=== PATIENT | male | born 1955 | race Caucasian/White ===

== ENCOUNTER 2019-05-29 12:16 | Inpatient (IN) ==
--- OUTSIDE RECORDS SUMMARY | 2019-05-29 12:18 | External Medical Summary | Continuity of Care Document ---
:1955 Author Name Fide Shaffer Address Unavailable Unavailable , Care Team Providers Name Role Phone Fide Shaffer Unavailable m PCP, UNKNOWN Unavailable Unavailable Problems Active medical history not documented Allergies and Adverse Reactions Allergy history not documented Medications Medications not documented Procedures Procedures not documented Immunizations Immunizations not documented Plan of Treatment Planned Observations Planned Goals not documented Results No Known Results Results not documented
[2019-05-29] MEDS ORDERED: dilTIAZem HCl 5 MG/ML 5 ML VIAL IV STA (12:49)
[2019-05-29] MEDS ORDERED: dilTIAZem HCl 125 MG in DEXTROSE 5% 100 ML IV STA (12:49)
[2019-05-29] MEDS ORDERED: SODIUM CHLORIDE 0.9% 500 ML IV SCH (13:00)
[2019-05-29 13:12] LABS: Basophils # (auto) 0.02 K/uL (0-0.2); Basophils % (auto) 0.3 %; Eosinophils # (auto) 0.03 K/uL (0-0.5); Eosinophils % (auto) 0.5 %; Hematocrit (blood only) 45.6 % (42-52); Hemoglobin 15.8 g/dL (14.0-18.0); Immature Granulocytes # (auto) 0.01 K/uL (0.00-0.02); Immature Granulocytes % (auto) 0.2 %; Lymphocytes # (auto) 1.07 K/uL (1.2-3.4); Lymphocytes % (auto) 16.3 %; Mean Corpuscular Hgb Conc 34.6 g/dL (32-36); Mean Corpuscular Volume 90.7 fL (80-100); Mean Platelet Volume 10.9 fL (7.4-10.4); Monocytes # (auto) 0.44 K/uL (0.11-0.59); Monocytes % (auto) 6.7 %; Neutrophils # (auto) 4.98 K/uL (1.4-6.5); Platelet Count 223 K/uL (130-400); RDW Coefficient of Variation 14.1 % (11.5-14.5); RDW Standard Deviation 45.8 fL (36.4-46.3); Red Blood Count 5.03 M/uL (4.7-6.1); White Blood Count 6.55 K/uL (4.8-10.8)
[2019-05-29 13:23] LABS: INR 1.2 (0.9-1.1); Partial Thromboplastin Time 26.7 Seconds (21.0-31.0); Prothrombin Time 12.5 Seconds (9.0-12.0)
--- NOTE | 2019-05-29 13:27 | XRay Report ---
XR chest 1V portable CLINICAL HISTORY: weakness dyspnea COMPARISON STUDY: 04/11/2014 FINDINGS: Moderate increase in cardiac size. Increased prominence of pulmonary vasculature. Trace ple ural fluid right base. IMPRESSION: Congestive heart failure The above report was generated using voice recognition software. It may contain grammatical, syntax or spelling errors. Electronically signed by: Danial Correa M.D. 05/29/2019 1:26 PM
[2019-05-29 13:29] LABS: Albumin Level 3.3 gm/dl (3.4-5.0); BUN Creatinine Ratio 16.2 (10-20); Calcium 8.7 mg/dl (8.5-10.1); Creatinine Clr Calc Pharmacy 78.8 ml/min; Est GFR (African American) 71.5; Est GFR (Non-African American) 61.7; Magnesium 2.1 mg/dl (1.8-2.4)
[2019-05-29 13:40] LABS: Albumin Globulin Ratio 1.1 (0.9-2); Globulin 3.1 gm/dl (2.5-4.0); Total Protein 6.4 gm/dl (6.4-8.2); Troponin I 0.041 ng/ml (0-0.045)
--- NOTE | 2019-05-29 15:04 | History & Physical Report ---
Date of Service May 29, 2019 Assessment & Plan (1) Atrial fibrillation with RVR: -Admit to telemetry -Patient presenting from home with reports of increasing shortness of breath over the past 1 to 2 months -In the ED, found to be in atrial fibrillation RVR with heart rate in the 140s -Remote history of paroxysmal atrial fibrillation, was placed on beta-cecelia, was not anticoagulated secondary to low CHADS2 score and EtOH abuse -Patient has been using his friend's Combivent inhaler -albuterol use could be contributing to patient's A. 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 Patient reports his symptoms been going on for the past 1 to 2 months and have been progressively getting worse. Patient reports he now experiences shortness of breath at rest and with minimal exertion. He reports orthopnea and some lower extremity edema as well. Patient denies chest pain or palpitations. He has had an associated cough which is been productive for white/clear sputum at times. Patient is a smoker. No lightheadedness, dizziness, diaphoresis, syncopal events. Reports a poor appetite over the past few days however denies abdominal pain, nausea, vomiting, diarrhea. No fevers or chills. Denies urinary symptoms. In the ED, patient is found to be in atrial fibrillation with RVR with heart rates in the 140s. He was given diltiazem 10 mg IV bolus followed by a 5 mg drip and heart rates have improved to the 90s. Labs showed elevated proBNP at 11,314, other labs unremarkable. CXR shows congestive heart failure. Allergies Allergy/AdvReac Type Severity Reaction Status Date / Time No Known Allergies Allergy Unverified 05/29/19 13:55 Home Medications Home Medications Medication Instructions Recorded Confirmed Type aspirin 325 mg PO DAILY 05/29/19 05/29/19 History metoprolol tartrate 12.5 mg PO BID 05/29/19 05/29/19 History simvastatin 20 mg PO HS 05/29/19 05/29/19 History Past Med/Surg History Medical History Abnormal stress test (Resolved) Psoriasis (Chronic) Alcohol abuse (Chronic) Paroxysmal atrial fibrillation (Chronic) Left bundle branch block (Chronic) Dyslipidemia (Chronic) Surgical History History of cardiac cath (Chronic) 2011-showed nonobstructive CAD H/O varicose vein stripping (Chronic) H/O inguinal hernia repair (Chronic) Family History Father Throat cancer Mother Lung cancer Other No significant family history Social History Preferred Language: Macanese Communication Ability: Effective Language Arts Teacher Required: No Beliefs That Will Affect Care: None Current Living Situation: Significant Other Other Information That Helps Us Care for You: No Feels Safe at Home: Yes Safety Concerns: Feels Safe At This Time Smoking Status: Current every day smoker Tobacco Type: cigarettes Cigarettes Per Day: 1/2 PPD Do You Dip or Chew Tobacco: Yes Tobacco Cessation Education Requested by Patient: No Hx Alcohol Use: Yes Alcohol type: beer and hard liquor Alcohol Intake Frequency Comment: 10-12 drinks/day Hx Substance Use: No Review of Systems Review of Systems: ROS per HPI, all other systems reviewed and negative Physical Exam Constitutional: WD/WN, vitals as above Eyes: PERRL, conjunctivae normal, anicteric sclerae ENMT: external ear and nose normal, oropharynx normal Respiratory: normal respiratory effort, lungs clear to auscultation Cardiovascular: Rate/Rhythm: + tachycardic and + irregularly irregular Vessels: normal peripheral pulses Extremities: + edema (+1 pitting edema BLE) Gastrointestinal (Abdomen): normal bowel sounds, soft, nontender, no hepatosplenomegaly Musculoskeletal: no cyanosis or clubbing, extremities motor strength 5/5 Skin: no rashes, warm and dry Neurologic: PERRL, EOMI, accommodation nl, no face palsy, no dysarthria Psychiatric: A+Ox3, euthymic affect Results & Data Vital Signs (Past 12 Hours) Vital Signs Temp Pulse Pulse Resp BP BP Pulse Ox 05/29/19 14:15 96 H 19 114/78 94 05/29/19 13:45 109 H 19 110/77 95 05/29/19 13:15 104 H 20 103/84 93 05/29/19 12:28 36.3 C L 139 H 20 129/73 95 Laboratory Results Short CBC 05/29/19 Range/Units 13:00 WBC 6.55 (4.8-10.8) K/uL Hgb 15.8 (14.0-18.0) g/dL Hct 45.6 (42-52) % Plt Count 223 (130-400) K/uL BMP 05/29/19 13:00 Sodium 140 Potassium 4.0 Chloride 110 H Carbon Dioxide 18 L BUN 20 H Creatinine 1.23 Glucose 146 H Calcium 8.7 Cardiac Enzymes 05/29/19 Range/Units 13:00 Troponin I 0.041 (0-0.045) ng/ml Liver Function 05/29/19 Range/Units 13:00 Total Bilirubin 2.0 H (0.2-1) mg/dl AST 24 (15-37) U/L ALT 27 (12-78) U/L Alkaline Phosphatase 84 (45-117) U/L Albumin 3.3 L (3.4-5.0) gm/dl Diagnostic Findings CXR IMPRESSION: Congestive heart failure Code Status & VTE Plan VTE Prophylaxis Plan VTE Prophylaxis will be ordered: Yes Supervising Physician Co-Signing Physician Notes I, Dr. Sukumar Alejo, have seen and examined the patient with nurse practitioner and agree with the assessment and plan as above and would like to add that Patient has atrial fibrillation with rapid ventricular response. Patient's heart rate responded to initial pushes of IV diltiazem and this did bring down the heart rate to the 90s beats per minute. On exam, lungs are clear, breathing on room air abdomen is soft no edema of the extremities no focal neurological deficits However, once transitioned to the telemetry shaver while on diltiazem drip, patient's heart rate now closer to 110s to 120s. At this time, I will start patient on oral diltiazem to give better calcium channel blockade for longer duration and will start with short acting diltiazem 60 mg BID while continuing the IV diltiazem. appreciate further cardiology recommendations on rate and rhythm control. patient is also due for echocardiogram during hospital stay suspect that patient's subjective dyspnea is due to the atrial fibrillation but should rule out pulmonary hypertension and 1st step may be with resting echocardiogram. patient continues to be on room air The may be some component of congestive heart failure but patient does not appear to be grossly fluid overloaded and awaiting echocardiogram results before a clear diagnosis of CHF should be made. But I agree with Lasix IV on date of admission given that patient also on IV heparin for now for systemic anticoagulation of the atrial fibrillation.. Will schedule Lasix as 20 mg daily for now starting on 05/29/19 agree with other assessment and plan as documented by nurse practitioner. The patient will be followed by Dr. Zavaleta starting on 05/30/19
[2019-05-29] MEDS ORDERED: ACETAMINOPHEN 325 MG TAB PO PRN (15:35)
[2019-05-29] MEDS ORDERED: LORazepam 1 MG TAB PO PRN (15:35)
[2019-05-29] MEDS ORDERED: dilTIAZem HCl 125 MG in DEXTROSE 5% 100 ML IV SCH (15:45)
[2019-05-29] MEDS ORDERED: FUROSEMIDE 40 MG in SYRINGE 0 ML IV ONE (15:45)
[2019-05-29] MEDS ORDERED: HEPARIN IV BOLUS 7,000 UNITS in SYRINGE 0 ML IV ONE (16:15)
[2019-05-29] MEDS ORDERED: Heparin Adult STANDARD Wt-Based Dextrose 5% 25,000 units/500 mL IV SCH (16:15)
[2019-05-29] MEDS: FOLIC ACID 1 MG TAB PO SCH (16:42)
[2019-05-29] MEDS: MULTIVITAMIN TAB PO SCH (16:43)
[2019-05-29] MEDS: THIAMINE HCL 100 MG TAB PO SCH (16:43)
[2019-05-29] MEDS: HEPARIN SODIUM/DEXTROSE 25,000 UNITS/500 ML BAG IV SCH (16:52)
--- NOTE | 2019-05-29 17:38 | Cardiology Consultation ---
Date of Consultation May 29, 2019 Assessment & Plan (1) Atrial fibrillation with RVR: (2) Cardiomyopathy: (3) Acute systolic (congestive) heart failure: (4) LBBB (left bundle branch block): (5) Severe mitral regurgitation: (6) Alcohol abuse: Echocardiogram demonstrates severe diffuse cardiomyopathy. I suspect secondary to underlying alcohol abuse in the setting of chronic left bundle branch block and atrial fibrillation. Previous catheterization performed 2011 demonstrated mild nonobstructive CAD. Discontinue oral Cardizem. Will increase metoprolol tartrate to 12.5 mg 3 times daily. Wean Cardizem infusion as tolerated. Titrate metoprolol to achieve rate control as blood pressure allows. Consider addition of digoxin if necessary. Agree with Lasix 40 mg x 1 now then 40 mg daily. Repeat basic metabolic panel in a.m. I had a long discussion with the patient and his regarding the need to discontinue all alcohol intakes. The cardiotoxic effects of alcohol abuse discussed at length. With the patient and his voiced understanding and agreement. Plans to initiate additional evidence-based heart failure therapy as tolerated during hospitalization including GABY inhibitor/ARB as well as Aldactone. Cardiology will continue to follow patient closely during hospitalization. History of Present Illness Reason for Consultation: Atrial fibrillation with rapid ventricular response Requesting Physician: Dr. Sullivan Attending Physician: Raji Sullivan MD History of Present Illness 63-year-old patient presented emergency department progressive shortness of breath over approximately 2 weeks. Patient diagnosed with atrial fibrillation rapid ventricular response in the ER. Treated with IV Cardizem infusion. Heart rate currently 100 to 110 bpm. Carries a history of chronic left bundle branch block and nonobstructive coronary disease diagnosed per cardiac catheterization 2011. Has a long-standing history of excessive alcohol intake. He has not followed with cardiology more than 7 years. Preliminary review of bedside 2D tr ansthoracic echocardiogram demonstrates severe LV systolic dysfunction with ejection fraction of 20%. Moderate to severe mitral regurgitation noted. Chronic lower extremity edema noted for several years. is present at bedside. Patient admits to drinking beer and william heavily since retiring in November. Notes orthopnea without paroxysmal nocturnal dyspnea. No claudication, lightheadedness, dizziness, syncope, or near syncope. Allergies Allergy/AdvReac Type Severity Reaction Status Date / Time No Known Allergies Allergy Unverified 05/29/19 13:55 Home Medications Home Medications Medication Instructions Recorded Confirmed Type aspirin 325 mg PO DAILY 05/29/19 05/29/19 History metoprolol tartrate 12.5 mg PO BID 05/29/19 05/29/19 History simvastatin 20 mg PO HS 05/29/19 05/29/19 History Patient History Medical History Abnormal stress test (Resolved) Psoriasis (Chronic) Alcohol abuse (Chronic) Paroxysmal atrial fibrillation (Chronic) Left bundle branch block (Chronic) Dyslipidemia (Chronic) Surgical History History of cardiac cath (Chronic) 2012-showed nonobstructive CAD H/O varicose vein stripping (Chronic) H/O inguinal hernia repair (Chronic) Family History Father Throat cancer Mother Lung cancer Other No significant family history Social History Preferred Language: Uzbek Communication Ability: Effective Metallurgy Teacher Required: No Beliefs That Will Affect Care: None Current Living Situation: Significant Other Other Information That Helps Us Care for You: No Feels Safe at Home: Yes Safety Concerns: Feels Safe At This Time Smoking Status: Current every day smoker Tobacco Type: cigarettes Cigarettes Per Day: 1/2 PPD Do You Dip or Chew Tobacco: Yes Tobacco Cessation Education Requested by Patient: No Hx Alcohol Use: Yes Alcohol type: beer and hard liquor Alcohol Intake Frequency Comment: 10-12 drinks/day Hx Substance Use: No Review of Systems Review of Systems: All systems reviewed & are unremarkable except as noted in HPI & below Physical Exam Physical Exam: General: NAD, AAO x3, well nourished. HEENT: Normocephalic. Atraumatic. Conjunctiva pink, no scleral icterus. Neck: No carotid bruits, the carotid upstrokes are brisk. No JVD. No HJR Heart: Irregular rhythm, tachycardic, normal S1 and S2. 1-2/6 midsystolic murmur heard best at the apex. No RV heave. Lungs: Scant crackles at the bases bilaterally. Bilateral wheeze. Abdomen: Normal bowel sounds. Soft. Nontender. No masses or organomegaly. No abdominal bruits. Extremities: 2+ bilateral lower extremity pretibial edema with stasis changes. Pulses: radial=2/4, Dorsalis pedis =2/4. Neuro: Cranial nerves grossly intact. No focal motor deficit. Results & Data Vital Signs (Past 12 Hours) Vital Signs Temp Pulse Pulse Resp BP BP Pulse Ox 05/29/19 15:36 36.4 C L 88 18 111/75 95 05/29/19 15:02 92 H 20 134/80 93 05/29/19 14:15 96 H 19 114/78 94 05/29/19 13:45 109 H 19 110/77 95 05/29/19 13:15 104 H 20 103/84 93 05/29/19 12:28 36.3 C L 139 H 20 129/73 95
[2019-05-29] MEDS ORDERED: METOPROLOL TARTRATE 25 MG TAB PO STA (17:41)
--- NOTE | 2019-05-29 19:19 | Emergency Department Note ---
Entered by Frances Marsh acting as a scribe for History of Present Illness General Chief complaint: Shortness of Breath/Dyspnea Stated complaint: SHORT OF BREATH Time Seen by Provider: 05/29/19 12:45 Source: patient History of Present Illness Onset (ago): day(s) (few) Location: chest Pain Consistency: + other (worsening ) Quality: + other (shortness of breath) Associated symptoms: + cough (with phlegm), + diaphoresis, + loss of appetite and + other (fatigue); no chest pain The patient is a 63 year old male who presents to the Emergency Room with complaints of worsening shortness of breath and fatigue beginning in the last few days. The patient reports he struggles to walk 15 yards without becoming exhausted and experiencing shortness of breath. The patient also notes lack of appetite. The patients states that he had been coughing all night long with phlegm. The patient also reports episodes of diaphoresis. The patient has a history of an irregular heart beat and takes metoprolol, simvastatin, and aspirin. The patient denies chest pain or previous myocardial infarctions. The patient is a smoker. Home Medications Home Medications Medication Instructions Recorded Confirmed Type aspirin 325 mg PO DAILY 05/29/19 05/29/19 History metoprolol tartrate 12.5 mg PO BID 05/29/19 05/29/19 History simvastatin 20 mg PO HS 05/29/19 05/29/19 History Allergies Allergy/AdvReac Type Severity Reaction Status Date / Time No Known Allergies Allergy Unverified 05/29/19 13:55 Past Med/Surg History Medical History Abnormal stress test (Resolved) Psoriasis (Chronic) Alcohol abuse (Chronic) Paroxysmal atrial fibrillation (Chronic) Left bundle branch block (Chronic) Dyslipidemia (Chronic) Surgical History History of cardiac cath (Chronic) 2011-showed nonobstructive CAD H/O varicose vein stripping (Chronic) H/O inguinal hernia repair (Chronic) Family History Father Throat cancer Mother Lung cancer Other No significant family history Social History Preferred Language: Nicarag[place] Communication Ability: Effective 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 and A total of 10 systems reviewed and were otherwise negative Physical Exam Vital Signs Vital Signs - 24 hr 05/29/19 12:28 05/29/19 13:15 05/29/19 13:23 Temperature 36.3 C L Temperature Source Oral Sepsis Recent Fever Within 48 Hours No Sepsis New/Unexplained Change in Mental Status No Sepsis Action Taken by Nursing No Action Required Pulse Rate 139 H Pulse Rate [Apical] 104 H Pulse Rhythm [Apical] Irregular Respiratory Rate 20 20 Respiratory Effort / Characteristics Non-Labored Spontaneous Non-Labored Spontaneous Non-Labored Spontaneous Respiratory Depth Normal Normal Normal Respiratory Pattern Regular Regular Blood Pressure 129/73 Blood Pressure [Left Arm] 103/84 Blood Pressure Mean 91 Blood Pressure Mean [Left Arm] 90 Blood Pressure Position Sitting Pulse Oximetry 95 93 Oxygen Delivery Method Room Air Room Air 05/29/19 13:45 Temperature Temperature Source Sepsis Recent Fever Within 48 Hours Sepsis New/Unexplained Change in Mental Status Sepsis Action Taken by Nursing Pulse Rate Pulse Rate [Apical] 109 H Pulse Rhythm [Apical] Irregular Respiratory Rate 19 Respiratory Effort / Characteristics Non-Labored Spontaneous Respiratory Depth Normal Respiratory Pattern Regular Blood Pressure Blood Pressure [Left Arm] 110/77 Blood Pressure Mean Blood Pressure Mean [Left Arm] 88 Blood Pressure Position Pulse Oximetry 95 Oxygen Delivery Method Room Air GENERAL: Patient is in no acute distress. HEENT: No acute trauma, normocephalic atraumatic, mucous membranes moist, no nasal congestion, no scleral icterus. NECK: No stridor, no adenopathy, no meningismus, trachea is midline. LUNGS: Decreased breath sounds, breath sounds are equal, no respiratory distress, scattered wheezes heard. HEART: Tachycardic, irregular rhythm, no murmur ABDOMEN: Soft, nontender, bowel sounds positive, no hernias, no peritonitis. EXTREMITIES: Mild bilateral pedal edema, full range of motion of all the joints without pain or difficulty, no signs for acute trauma. NEUROLOGIC: Oriented x 3, no acute motor or sensory deficits, no focal weakness. SKIN: No rash, no jaundice, no diaphoresis. Course 1243: Past medical records reviewed. The patient was evaluated in room A2. A complete history and physical exam was performed. 1343: I discussed the case with the patient. He verbalized understanding and agreement of instructions. 1347: I discussed the patient with Mario Rudoplhist, who has agreed to further evaluate the patient. Reevaluation(s) Reevaluation #1: I discussed the patient with Mario Rudolph, who has agreed to further evaluate the patient. Time: 13:47 Administered Medications [facility]vite) [facility] [place] Stop: 06/28/19 15:44 Last Admin: 05/29/19 16:42 Dose: 1 mg Documented by: [id number] Heparin Sodium/Dextrose (Heparin Sodium/Dextrose) 25,000 units in 500 mls @ 33 mls/hr IV .[id number] RADHA; Protocol Stop: 06/28/19 16:14 Last Admin: 05/29/19 16:52 Dose: 1,650 units/hr, 33 mls/hr Documented by: [id number] Cosigned by: [id number] Diltiazem HCl 125 mg/ Dextrose 125 mls @ 2.5 mls/hr IV .Q24H RADHA; Protocol Stop: 06/28/19 15:44 Last Titration: 05/29/19 17:44 Dose: 2.5 mg/hr, 2.5 mls/hr Documented by: [id number] Admin: 05/29/19 16:40 Dose: 5 mg/hr, 5 mls/hr Documented by: [id number] Cosigned by: [id number] Multivitamins (Multivitamin Tab) [facility] [place] Stop: 06/28/19 15:59 Last Admin: 05/29/19 16:43 Dose: 1 tab Documented by: [id number] Thiamine HCl (Vitamin B-1) [facility] [place] Stop: 06/28/19 15:44 Last Admin: 05/29/19 16:43 Dose: 100 mg Documented by: [id number] Discontinued Medications Diltiazem HCl (Cardizem) 10 mg IV NOW STA Stop: 05/29/19 12:50 Last Admin: 05/29/19 13:10 Dose: 10 mg Documented by: [id number] Cosigned by: [id number] Diltiazem HCl (Cardizem Sr) 60 mg PO ONCE ONE Stop: 05/29/19 16:01 Last Admin: 05/29/19 16:41 Dose: 60 mg Documented by: [id number] Diltiazem HCl 125 mg/ Dextrose 125 mls @ 0 mls/hr IV .Q0M STA; Protocol Stop: 05/29/19 12:50 Last Admin: 05/29/19 13:17 Dose: 5 mg/hr, 5 mls/hr Documented by: [id number] Cosigned by: [id number] Sodium Chloride (Nss) 500 mls @ 999 mls/hr IV .Q31M RADHA Stop: 05/29/19 13:30 Last Infusion: 05/29/19 13:51 Dose: 0 mls/hr Documented by: [id number] Admin: 05/29/19 13:17 Dose: 999 mls/hr Documented by: [id number] Furosemide 40 mg/ Syringe 4 mls @ 4 mls/min IV ONE ONE Stop: 05/29/19 15:46 Last Admin: 05/29/19 16:41 Dose: 4 mls/min Documented by: [id number] Heparin Sodium (Porcine) 7,000 (units/ Syringe) 7 mls @ 10 mls/min IV NOW ONE Stop: 05/29/19 16:16 Last Admin: 05/29/19 16:41 Dose: 10 mls/min Documented by: [id number] Cosigned by: [id number] Metoprolol Tartrate (Lopressor) 12.5 mg PO NOW STA Stop: 05/29/19 17:42 Last Admin: 05/29/19 19:00 Dose: 12.5 mg Documented by: [id number] Medical Decision Making Differential Diagnosis Differential diagnoses include atrial fibrillation, atrial flutter, medication reaction, anemia, electrolyte imbalance, thyroid disorder, and myocardial inf arction. Medical Records Attestation: I reviewed the patient's medical records. Home Medications Current Medication List: was personally reviewed by me Laboratory Data Attestation: I reviewed the patient's lab results. Result diagrams: 05/29/19 13:00 05/29/19 13:00 Lab Results 05/29/19 05/29/19 05/29/19 Range/Units 13:00 13:00 13:00 WBC 6.55 (4.8-10.8) K/uL RBC 5.03 (4.7-6.1) M/uL Hgb 15.8 (14.0-18.0) g/dL Hct 45.6 (42-52) % MCV 90.7 (80-100) fL MCH 31.4 (25-34) pg MCHC 34.6 (32-36) g/dL RDW Std Deviation 45.8 (36.4-46.3) fL RDW Coeff of Joao 14.1 (11.5-14.5) % Plt Count 223 (130-400) K/uL MPV 10.9 H (7.4-10.4) fL Immature Gran % (Auto) 0.2 % Neut % (Auto) 76.0 % Lymph % (Auto) 16.3 % [place] % (Auto) 6.7 % Eos % (Auto) 0.5 % Baso % (Auto) 0.3 % Immature Gran # (Auto) 0.01 (0.00-0.02) K/uL Neut # (Auto) 4.98 (1.4-6.5) K/uL Lymph # (Auto) 1.07 L (1.2-3.4) K/uL [place] # (Auto) 0.44 (0.11-0.59) K/uL Eos # (Auto) 0.03 (0-0.5) K/uL Baso # (Auto) 0.02 (0-0.2) K/uL PT 12.5 H (9.0-12.0) Seconds INR 1.2 H (0.9-1.1) APTT 26.7 (21.0-31.0) Seconds PTT Ratio 1.0 Sodium 140 (136-145) mmol/L Potassium 4.0 (3.5-5.1) mmol/L Chloride 110 H (98-107) mmol/L Carbon Dioxide 18 L (21-32) mmol/L Anion Gap 12.0 H (3-11) BUN 20 H (7-18) mg/dl Creatinine 1.23 (0.6-1.4) mg/dl Est Cr Clr Drug Dosing 78.8 ml/min Est GFR ( Amer) 71.5 Est GFR (Non-Af Amer) 61.7 BUN/Creatinine Ratio 16.2 (10-20) Glucose 146 H (70-99) mg/dl Calcium 8.7 (8.5-10.1) mg/dl Magnesium 2.1 (1.8-2.4) mg/dl Total Bilirubin 2.0 H (0.2-1) mg/dl AST 24 (15-37) U/L ALT 27 (12-78) U/L Alkaline Phosphatase 84 (45-117) U/L Troponin I 0.041 (0-0.045) ng/ml NT-Pro-B Natriuret Pep (0-900) pg/ml Total Protein 6.4 (6.4-8.2) gm/dl Albumin 3.3 L (3.4-5.0) gm/dl Globulin 3.1 (2.5-4.0) gm/dl Albumin/Globulin Ratio 1.1 (0.9-2) TSH 2.140 (0.300-4.500) uIu/ml 05/29/19 Range/Units 13:00 WBC (4.8-10.8) K/uL RBC (4.7-6.1) M/uL Hgb (14.0-18.0) g/dL Hct (42-52) % MCV (80-100) fL MCH (25-34) pg MCHC (32-36) g/dL RDW Std Deviation (36.4-46.3) fL RDW Coeff of Joao (11.5-14.5) % Plt Count (130-400) K/uL MPV (7.4-10.4) fL Immature Gran % (Auto) % Neut % (Auto) % Lymph % (Auto) % [place] % (Auto) % Eos % (Auto) % Baso % (Auto) % Immature Gran # (Auto) (0.00-0.02) K/uL Neut # (Auto) (1.4-6.5) K/uL Lymph # (Auto) (1.2-3.4) K/uL [place] # (Auto) (0.11-0.59) K/uL Eos # (Auto) (0-0.5) K/uL Baso # (Auto) (0-0.2) K/uL PT (9.0-12.0) Seconds INR (0.9-1.1) APTT (21.0-31.0) Seconds PTT Ratio Sodium (136-145) mmol/L Potassium (3.5-5.1) mmol/L Chloride (98-107) mmol/L Carbon Dioxide (21-32) mmol/L Anion Gap (3-11) BUN (7-18) mg/dl Creatinine (0.6-1.4) mg/dl Est Cr Clr Drug Dosing ml/min Est GFR ( Amer) Est GFR (Non-Af Amer) BUN/Creatinine Ratio (10-20) Glucose (70-99) mg/dl Calcium (8.5-10.1) mg/dl Magnesium (1.8-2.4) mg/dl Total Bilirubin (0.2-1) mg/dl AST (15-37) U/L ALT (12-78) U/L Alkaline Phosphatase (45-117) U/L Troponin I (0-0.045) ng/ml NT-Pro-B Natriuret Pep 19732 H (0-900) pg/ml Total Protein (6.4-8.2) gm/dl Albumin (3.4-5.0) gm/dl Globulin (2.5-4.0) gm/dl Albumin/Globulin Ratio (0.9-2) TSH (0.300-4.500) uIu/ml Imaging Data Radiologist's Impression: Radiology results as stated below per my review and the radiologist's interpretation: XR chest 1V portable CLINICAL HISTORY: weakness dyspnea COMPARISON STUDY: 04/11/2014 FINDINGS: Moderate increase in cardiac size. Increased prominence of pulmonary vasculature. Trace pleural fluid right base. IMPRESSION: Congestive heart failure The above report was generated using voice recognition software. It may contain grammatical, syntax or spelling errors. Electronically signed by: Danial Correa M.D. 05/29/2019 1:26 PM ECG Data Attestation: I personally reviewed and interpreted this ECG as follows: Indication: SOB/dyspnea Rate (beats per minute): 133 Rhythm: atrial fibrillation Findings: + LBBB; no PVC and no ST elevation Blood Pressure Blood Pressure Findings: Normal blood pressure MDM Narrative There is no leukocytosis or concerning anemia. INR is mildly elevated at 1.2. No significant electrolyte abnormality. No kidney failure. No concerning liver enzyme elevation. Patient appears to be in a euthyroid state. EKG shows a rapid A. fib without acute ischemia. Cardiac enzyme testing x1 is not consistent with acute cardiac injury. Chest film suggest some possible CHF, there was no pneumonia. BNP was elevated consistent with fluid overload. On exam, the patient was wheezing, no crackles were heard. The patient presents with shortness of breath, palpitations and appears to be in rapid A. fib. He was aggressively managed. He was given 500 cc of IV saline, he received IV diltiazem as a bolus and then was placed on IV diltiazem drip. This did seem to help control his heart rate. He seemed to be resting comfortably. He was not requiring oxygen. The patient is in need of a hospital stay. He will require further work-up for the A. fib. He may require diuresis as well. I did speak to the patient and case management. The on-call hospitalist was consulted. Impression & Plan Atrial fibrillation, rapid, Shortness of breath, Weakness Critical Care Time Critical Care Time: Yes Total Critical Care Time: 42 I have personally spent 42 minutes of critical care time in the direct management of this patient. This includes bedside care, interpretation of diagnostic studies, and testing, discussion with consultants, patient, and family members, and other required patient management activities. This 42 minutes is in excess of all separately billable procedures. Discharge Plan Visit Data *Final* Discharge Date/Time: 05/29/19 15:02 Chief Complaint: Shortness of Breath/Dyspnea Stated Complaint: SHORT OF BREATH ED Provider: Ziggy Zhao Discharge Problem: Atrial fibrillation, rapid, Shortness of breath, Weakness Patient Disposition: Admitted As Inpatient Discharge Instructions Interventions: ED Discharge Assessment Last Done: 05/29/19 15:02 The scribe's documentation has been prepared under my direction and personally reviewed by me in its entirety. I confirm that the note above accurately reflects all work, treatment, procedures, and medical decision making performed by me.
[2019-05-29] MEDS ORDERED: SIMVASTATIN 20 MG TAB PO SCH (21:00)
[2019-05-29] MEDS: METOPROLOL TARTRATE 25 MG TAB PO SCH (21:09)
[2019-05-29] MEDS ORDERED: Nursing to Pharmacy Communication ONE (21:11)
[2019-05-29 23:25] LABS: Partial Thromboplastin Ratio > 5.1
[2019-05-29 23:39] LABS: Partial Thromboplastin Time > 139.0 Seconds (21.0-31.0)
[2019-05-30 01:26] LABS: Partial Thromboplastin Ratio 3.1
[2019-05-30 01:29] LABS: Partial Thromboplastin Time 85.1 Seconds (21.0-31.0)
[2019-05-30] MEDS: METOPROLOL TARTRATE 25 MG TAB PO SCH ×3 (08:06→21:01)
[2019-05-30] MEDS: MULTIVITAMIN TAB PO SCH (08:07)
[2019-05-30] MEDS: THIAMINE HCL 100 MG TAB PO SCH (08:07)
[2019-05-30] MEDS: FOLIC ACID 1 MG TAB PO SCH (08:08)
[2019-05-30 08:20] LABS: Hematocrit (blood only) 44.6 % (42-52); Hemoglobin 15.4 g/dL (14.0-18.0); Mean Corpuscular Hgb Conc 34.5 g/dL (32-36); Mean Platelet Volume 10.8 fL (7.4-10.4); Platelet Count 234 K/uL (130-400); RDW Coefficient of Variation 14.1 % (11.5-14.5); RDW Standard Deviation 47.4 fL (36.4-46.3); Red Blood Count 4.85 M/uL (4.7-6.1); White Blood Count 6.83 K/uL (4.8-10.8)
[2019-05-30 08:43] LABS: Partial Thromboplastin Ratio 2.8
[2019-05-30 08:47] LABS: Partial Thromboplastin Time 75.3 Seconds (21.0-31.0)
[2019-05-30 08:49] LABS: BUN Creatinine Ratio 16.2 (10-20); Calcium 8.7 mg/dl (8.5-10.1); Creatinine Clr Calc Pharmacy 67.1 ml/min; Est GFR (Non-African American) 56.1; Potassium 4.2 mmol/L (3.5-5.1)
[2019-05-30] MEDS ORDERED: FUROSEMIDE 20 MG TAB PO SCH (09:00)
[2019-05-30] MEDS: HEPARIN SODIUM/DEXTROSE 25,000 UNITS/500 ML BAG IV SCH (10:07)
--- NOTE | 2019-05-30 11:28 | Cardiology Progress Note ---
Date of Service May 30, 2019 Assessment & Plan (1) Atrial fibrillation with RVR: (2) Cardiomyopathy: (3) Acute systolic (congestive) heart failure: (4) LBBB (left bundle branch block): (5) Severe mitral regurgitation: (6) Alcohol abuse: Cardizem discontinued. Increase metoprolol to 25 mg 3 times daily. Transition oral Lasix to IV, 40 mg daily. Follow fluid balance, daily weight, GFR, and electrolytes. Echocardiogram demonstrates severe diffuse cardiomyopathy. I suspect secondary to underlying alcohol abuse in the setting of chronic left bundle branch block and atrial fibrillation. Previous catheterization performed 2011 demonstrated mild nonobstructive CAD. I had a long discussion with the patient regarding the need to discontinue all alcohol intakes. The cardiotoxic effects of alcohol abuse discussed at length. Patient voiced understanding and agreement. Plans to initiate additional evidence-based heart failure therapy as tolerated during hospitalization including GABY inhibitor/ARB as well as Aldactone. Cardiology will continue to follow patient closely during hospitalization. Subjective Patient seen and examined at the bedside. Feeling better today. Continues to note expiratory wheezing and cough. Mild orthopnea persists. Denies chest pain. Lower extremity edema unchanged. IV Cardizem discontinued. Review of Systems Review of Systems: All systems reviewed & are unremarkable except as noted in HPI & below Physical Exam Physical Exam: General: NAD, AAO x3, well nourished. HEENT: Normocephalic. Atraumatic. Conjunctiva pink, no scleral icterus. Neck: No carotid bruits, the carotid upstrokes are brisk. No JVD. No HJR Heart: Irregular rhythm, tachycardic, normal S1 and S2. 1-2/6 midsystolic murmur heard best at the apex. No RV heave. Lungs: Scant crackles at the bases bilaterally. Bilateral wheeze. Abdomen: Normal bowel sounds. Soft. Nontender. No masses or organomegaly. No abdominal bruits. Extremities: 2+ bilateral lower extremity pretibial edema with stasis changes. Pulses: radial=2/4, Dorsalis pedis =2/4. Neuro: Cranial nerves grossly intact. No focal motor deficit. Results & Data Vital Signs (Past 12 Hours) Vital Signs Temp Pulse Pulse Resp BP Pulse Ox 05/30/19 10:59 36.4 C L 105 H 18 108/77 94 07/24/19 08:18 90 05/30/19 07:02 36.4 C L 86 18 106/75 92 05/30/19 04:22 36.7 C 90 17 110/74 92 05/30/19 02:37 90 Laboratory Results Laboratory Results - last 24 hr 05/29/19 05/29/19 05/29/19 13:00 13:00 13:00 WBC 6.55 RBC 5.03 Hgb 15.8 Hct 45.6 MCV 90.7 MCH 31.4 MCHC 34.6 RDW Std Deviation 45.8 RDW Coeff of Joao 14.1 Plt Count 223 MPV 10.9 H Immature Gran % (Auto) 0.2 Neut % (Auto) 76.0 Lymph % (Auto) 16.3 [place] % (Auto) 6.7 Eos % (Auto) 0.5 Baso % (Auto) 0.3 Immature Gran # (Auto) 0.01 Neut # (Auto) 4.98 Lymph # (Auto) 1.07 L [place] # (Auto) 0.44 Eos # (Auto) 0.03 Baso # (Auto) 0.02 PT 12.5 H INR 1.2 H APTT 26.7 PTT Ratio 1.0 Sodium 140 Potassium 4.0 Chloride 110 H Carbon Dioxide 18 L Anion Gap 12.0 H BUN 20 H Creatinine 1.23 Est Cr Clr Drug Dosing 78.8 Est GFR ( Amer) 71.5 Est GFR (Non-Af Amer) 61.7 BUN/Creatinine Ratio 16.2 Glucose 146 H Calcium 8.7 Magnesium 2.1 Total Bilirubin 2.0 H AST 24 ALT 27 Alkaline Phosphatase 84 Troponin I 0.041 NT-Pro-B Natriuret Pep Total Protein 6.4 Albumin 3.3 L Globulin 3.1 Albumin/Globulin Ratio 1.1 TSH 2.140 05/29/19 05/29/19 05/29/19 13:00 19:04 22:54 WBC RBC Hgb Hct MCV MCH MCHC RDW Std Deviation RDW Coeff of Joao Plt Count MPV Immature Gran % (Auto) Neut % (Auto) Lymph % (Auto) [place] % (Auto) Eos % (Auto) Baso % (Auto) Immature Gran # (Auto) Neut # (Auto) Lymph # (Auto) [place] # (Auto) Eos # (Auto) Baso # (Auto) PT INR APTT > 139.0 H* PTT Ratio > 5.1 Sodium Potassium Chloride Carbon Dioxide Anion Gap BUN Creatinine Est Cr Clr Drug Dosing Est GFR ( Amer) Est GFR (Non-Af Amer) BUN/Creatinine Ratio Glucose Calcium Magnesium Total Bilirubin AST ALT Alkaline Phosphatase Troponin I 0.054 H* NT-Pro-B Natriuret Pep 21915 H Total Protein Albumin Globulin Albumin/Globulin Ratio [facility] 05/30/19 05/30/19 05/30/19 00:50 00:50 08:10 WBC RBC Hgb Hct MCV MCH MCHC RDW Std Deviation RDW Coeff of Joao Plt Count MPV Immature Gran % (Auto) Neut % (Auto) Lymph % (Auto) [place] % (Auto) Eos % (Auto) Baso % (Auto) Immature Gran # (Auto) Neut # (Auto) Lymph # (Auto) [place] # (Auto) Eos # (Auto) Baso # (Auto) PT INR APTT 85.1 H* PTT Ratio 3.1 Sodium 139 Potassium 4.2 Chloride 106 Carbon Dioxide 24 Anion Gap 10.0 BUN 22 H Creatinine 1.33 Est Cr Clr Drug Dosing 67.1 Est GFR ( Amer) 65.0 Est GFR (Non-Af Amer) 56.1 BUN/Creatinine Ratio 16.2 Glucose 110 H Calcium 8.7 Magnesium Total Bilirubin AST ALT Alkaline Phosphatase Troponin I 0.054 H* NT-Pro-B Natriuret Pep Total Protein Albumin Globulin Albumin/Globulin Ratio [facility] 05/30/19 05/30/19 08:10 08:10 WBC 6.83 RBC 4.85 Hgb 15.4 Hct 44.6 MCV 92.0 MCH 31.8 MCHC 34.5 RDW Std Deviation 47.4 H RDW Coeff of Joao 14.1 Plt Count 234 MPV 10.8 H Immature Gran % (Auto) Neut % (Auto) Lymph % (Auto) [place] % (Auto) Eos % (Auto) Baso % (Auto) Immature Gran # (Auto) Neut # (Auto) Lymph # (Auto) [place] # (Auto) Eos # (Auto) Baso # (Auto) PT INR APTT 75.3 H* PTT Ratio 2.8 Sodium Potassium Chloride Carbon Dioxide Anion Gap BUN Creatinine Est Cr Clr Drug Dosing Est GFR ( Amer) Est GFR (Non-Af Amer) BUN/Creatinine Ratio Glucose Calcium Magnesium Total Bilirubin AST ALT Alkaline Phosphatase Troponin I NT-Pro-B Natriuret Pep Total Protein Albumin Globulin Albumin/Globulin Ratio TSH
[2019-05-30] MEDS: FUROSEMIDE 40 MG in SYRINGE 0 ML IV SCH (12:00)
[2019-05-30 15:24] LABS: Partial Thromboplastin Ratio 2.1; Partial Thromboplastin Time 57.9 Seconds (21.0-31.0)
--- NOTE | 2019-05-30 16:14 | Hospitalist Progress Note ---
Date of Service May 30, 2019 Assessment & Plan (1) Atrial fibrillation with RVR: -Patient presenting from home with reports of increasing shortness of breath over the past 1 to 2 months -Has atrial fibrillation RVR with heart rate in the 140s -Remote history of paroxysmal atrial fibrillation, was placed on beta-cecelia, was not anticoagulated secondary to low CHADS2 score and EtOH abuse -He was started with intravenous Cardizem and there are changed to oral beta- cecelia to control the heart rate -Echo did show cardiomyopathy with EF of 15 to 20% -Has been on heparin -Clinically little bit better -Appreciate cardiology input and recommendation -Likely to have cardiac cath to rule out any significant CAD (2) Acute CHF: -Patient reporting orthopnea and has pitting lower extremity edema on exam, elevated proBNP -Secondary to cardiomyopathy with reduced EF -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 -Has been getting intravenous Lasix with some improvement -May need cardiac arrest on discharge and ICD placement down the line (3) Alcohol abuse: -Patient reports having 10-12 liquor drinks/day -Reports no use in the past 3 days due to being ill, no signs of withdrawal -Cardiomyopathy and atrial fibrillation seems to be secondary to use of alcohol -Does not have any withdrawal symptoms (4) Dyslipidemia: -Continue statin (5) DVT prophylaxis: -On IV heparin drip -Will likely need long-term anticoagulation Subjective 05/30 Patient was seen and examined in the telemetry unit He complains to have weakness and tiredness at rest Shortness of breath on exertion Denies any chest pain and/or palpitation, any nausea no vomiting Review of Systems Review of Systems: All systems reviewed and are unremarkable except as noted below Constitutional: + fatigue, + weakness and + anorexia Respiratory: + dyspnea on exertion Cardiovascular: + dyspnea; no chest pain Physical Exam Physical Exam: No apparent distress at rest and sitting the side of the bed Constitutional: WD/WN, vitals as above well developed, well nourished, + ill appearing and + obese Eyes: PERRL, conjunctivae normal, anicteric sclerae ENMT: external ear and nose normal, oropharynx normal Neck: trachea midline, no thyromegaly Respiratory: normal respiratory effort; no respiratory distress Auscultation: lungs clear to auscultation bilaterally and + diminished lung sounds Cardiovascular: Rate/Rhythm: + tachycardic and + irregularly irregular; + abnormal rate and + abnormal rhythm Vessels: normal peripheral pulses Extremities: + edema (+1 pitting edema BLE) Gastrointestinal (Abdomen): normal bowel sounds, soft, nontender, no hepatosplenomegaly Musculoskeletal: no cyanosis or clubbing, extremities motor strength 5/5 No acute arthritis in any joints Skin: no rashes, warm and dry Neurologic: PERRL, EOMI, accommodation nl, no face palsy, no dysarthria Psychiatric: A+Ox3, euthymic affect Lymphatic: no cervical or axillary lymphadenopathy Results & Data Vital Signs (Past 12 Hours) Vital Signs Temp Pulse Pulse Resp BP Pulse Ox 05/30/19 10:59 36.4 C L 105 H 18 108/77 94 05/30/19 08:18 90 05/30/19 07:02 36.4 C L 86 18 106/75 92 05/30/19 04:22 36.7 C 90 17 110/74 92 Laboratory Results Short CBC 05/30/19 Range/Units 08:10 WBC 6.83 (4.8-10.8) K/uL Hgb 15.4 (14.0-18.0) g/dL Hct 44.6 (42-52) % Plt Count 234 (130-400) K/uL BMP 05/30/19 08:10 Sodium 139 Potassium 4.2 Chloride 106 Carbon Dioxide 24 BUN 22 H Creatinine 1.33 Glucose 110 H Calcium 8.7 Cardiac Enzymes 05/29/19 05/30/19 Range/Units 19:04 00:50 Troponin I 0.054 H* 0.054 H* (0-0.045) ng/ml Medications Administered Current Inpatient Medications Acetaminophen (Tylenol) 650 mg PO Q4H PRN PRN Reason: Pain or Fever Stop: 06/28/19 15:34 F[facility]) [facility] [place] Stop: 06/28/19 15:44 Last Admin: 05/30/19 08:08 Dose: 1 mg Documented by: Heparin Sodium/Dextrose (Heparin Sodium/Dextrose) 25,000 units in 500 mls @ 23 mls/hr IV .[id number] [facility]; Protocol Stop: 06/28/19 16:14 Last Titration: 05/30/19 15:05 Dose: 1,150 units/hr, 23 mls/hr Documented by: Furosemide 40 mg/ Syringe 4 mls @ 4 mls/min IV DAILY [facility] Stop: 06/29/19 11:59 Last Admin: 05/30/19 12:00 Dose: 4 mls/min Documented by: Lorazepam (Ativan) 1 mg PO ONE PRN; Protocol PRN Reason: EtoH Withdrawal AWSS 6-10 Metoprolol Tartrate (Lopressor) 25 mg PO TID [facility] Stop: 06/29/19 13:59 Last Admin: 05/30/19 13:28 Dose: 25 mg Documented by: Multivitamins (Multivitamin Tab) 1 tab PO QAM [facility] Stop: 06/28/19 15:59 Last Admin: 05/30/19 08:07 Dose: 1 tab Documented by: Thiamine HCl (Vitamin B-1) 100 mg PO QAM [facility] Stop: 06/28/19 15:44 Last Admin: 05/30/19 08:07 Dose: 100 mg Documented by:
[2019-05-30] MEDS ORDERED: METOPROLOL TARTRATE 50 MG TAB PO ONE (22:30)
[2019-05-31 06:05] LABS: Basophils # (auto) 0.02 K/uL (0-0.2); Basophils % (auto) 0.3 %; Eosinophils # (auto) 0.07 K/uL (0-0.5); Eosinophils % (auto) 1.2 %; Hematocrit (blood only) 46.4 % (42-52); Hemoglobin 15.8 g/dL (14.0-18.0); Immature Granulocytes # (auto) 0.01 K/uL (0.00-0.02); Immature Granulocytes % (auto) 0.2 %; Lymphocytes # (auto) 1.71 K/uL (1.2-3.4); Lymphocytes % (auto) 29.8 %; Mean Corpuscular Hgb Conc 34.1 g/dL (32-36); Mean Corpuscular Volume 91.5 fL (80-100); Mean Platelet Volume 11.1 fL (7.4-10.4); Monocytes # (auto) 0.62 K/uL (0.11-0.59); Monocytes % (auto) 10.8 %; Neutrophils % (auto) 57.7 %; Platelet Count 218 K/uL (130-400); RDW Coefficient of Variation 14.1 % (11.5-14.5); Red Blood Count 5.07 M/uL (4.7-6.1); White Blood Count 5.73 K/uL (4.8-10.8)
[2019-05-31] MEDS: HEPARIN SODIUM/DEXTROSE 25,000 UNITS/500 ML BAG IV SCH (06:07)
[2019-05-31 06:25] LABS: Partial Thromboplastin Ratio 2.2
[2019-05-31 06:27] LABS: Partial Thromboplastin Time 60.8 Seconds (21.0-31.0)
[2019-05-31 06:52] LABS: BUN Creatinine Ratio 15.4 (10-20); Calcium 8.9 mg/dl (8.5-10.1); Creatinine Clr Calc Pharmacy 64.2 ml/min; Est GFR (African American) 61.6; Est GFR (Non-African American) 53.2; Magnesium 2.1 mg/dl (1.8-2.4); Potassium 4.4 mmol/L (3.5-5.1)
[2019-05-31] MEDS: THIAMINE HCL 100 MG TAB PO SCH (08:49)
[2019-05-31] MEDS: FOLIC ACID 1 MG TAB PO SCH (08:49)
[2019-05-31] MEDS: FUROSEMIDE 40 MG in SYRINGE 0 ML IV SCH (08:49)
[2019-05-31] MEDS: MULTIVITAMIN TAB PO SCH (08:49)
[2019-05-31] MEDS: METOPROLOL TARTRATE 50 MG TAB PO SCH ×2 (09:41→20:44)
--- NOTE | 2019-05-31 11:17 | Cardiology Progress Note ---
Date of Service May 31, 2019 Assessment & Plan (1) Atrial fibrillation with RVR: (2) Cardiomyopathy: (3) Acute systolic (congestive) heart failure: (4) LBBB (left bundle branch block): (5) Severe mitral regurgitation: (6) Alcohol abuse: Increase metoprolol to 50 mg twice daily. Continue IV heparin infusion. Recommend cardiac catheterization to exclude presence of significant obstructive CAD. Risks, benefits, alternatives to procedure discussed with patient at length. He is agreeable to procedure. N.p.o. except medications after midnight. Plan for cardiac catheterization in a.m. 06/01/2019. Hold IV heparin at 7 AM. I had a long discussion with the patient regarding the need to discontinue all alcohol intakes. The cardiotoxic effects of alcohol abuse discussed at length. Patient voiced understanding and agreement. Plans to initiate additional evidence-based heart failure therapy as tolerated during hospitalization including GABY inhibitor/ARB as well as Aldactone. Cardiology will continue to follow patient closely during hospitalization. Subjective Patient seen and examined at the bedside. Reports orthopnea intermittently. Dyspnea on exertion and edema improving. Heart rate remains borderline elevated with average ventricular rates 100 - 110 bpm. Patient received an additional 25 mg of oral metoprolol last night. Review of Systems Review of Systems: All systems reviewed & are unremarkable except as noted in HPI & below Physical Exam Physical Exam: General: NAD, AAO x3, well nourished. HEENT: Normocephalic. Atraumatic. Conjunctiva pink, no scleral icterus. Neck: No carotid bruits, the carotid upstrokes are brisk. No JVD. No HJR Heart: Irregular rhythm, tachycardic, normal S1 and S2. 1-2/6 midsystolic murmur heard best at the apex. No RV heave. Lungs: Scant crackles at the bases bilaterally. Bilateral wheeze. Abdomen: Normal bowel sounds. Soft. Nontender. No masses or organomegaly. No abdominal bruits. Extremities: 2+ bilateral lower extremity pretibial edema with stasis changes. Pulses: radial=2/4, Dorsalis pedis =2/4. Neuro: Cranial nerves grossly intact. No focal motor deficit. Results & Data Vital Signs (Past 12 Hours) Vital Signs Temp Pulse Pulse Resp BP BP Pulse Ox 05/31/19 07:09 36.4 C L 92 H 18 111/77 92 07/25/19 03:25 36.3 C L 92 H 18 105/71 96 05/31/19 00:00 104 H 05/30/19 23:54 36.6 C 102 H 18 114/70 94 (1) Cardiomyopathy Cardiomyopathy type: alcoholic Qualified Code(s): I42.6 - Alcoholic cardiomyopathy
--- NOTE | 2019-05-31 18:32 | Hospitalist Progress Note ---
Date of Service May 31, 2019 Assessment & Plan (1) Atrial fibrillation with RVR: -Patient presenting from home with reports of increasing shortness of breath over the past 1 to 2 months -Has atrial fibrillation RVR with heart rate in the 140s -Remote history of paroxysmal atrial fibrillation, was placed on beta-cecelia, was not anticoagulated secondary to low CHADS2 score and EtOH abuse -He was started with intravenous Cardizem and there are changed to oral beta- cecelia to control the heart rate -Echo did show cardiomyopathy with EF of 15 to 20% -Has been on heparin -Clinically little bit better -Appreciate cardiology input and recommendation -Likely to have cardiac cath to rule out any significant CAD -Cardiac cath on 06/01 (2) Acute CHF: -Patient reporting orthopnea and has pitting lower extremity edema on exam, elevated proBNP -Secondary to cardiomyopathy with reduced EF -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 -Has been getting intravenous Lasix with some improvement -May need cardiac arrest on discharge and ICD placement down the line (3) Alcohol abuse: -Patient reports having 10-12 liquor drinks/day -Reports no use in the past 3 days due to being ill, no signs of withdrawal -Cardiomyopathy and atrial fibrillation seems to be secondary to use of alcohol -Does not have any withdrawal symptoms (4) Dyslipidemia: -Continue statin (5) DVT prophylaxis: -On IV heparin drip -Will likely need long-term anticoagulation Subjective 05/30 Patient was seen and examined in the telemetry unit He complains to have weakness and tiredness at rest Shortness of breath on exertion Denies any chest pain and/or palpitation, any nausea no vomiting 05/31 The patient was seen and examined in telemetry unit He denies any symptoms at rest Gets short of breath on minimal exertion without any chest pain Review of Systems Review of Systems: All systems reviewed and are unremarkable except as noted below Constitutional: + fatigue, + weakness and + anorexia Respiratory: + dyspnea on exertion Cardiovascular: + dyspnea; no chest pain Physical Exam Physical Exam: Sitting at the age of the bed without any symptoms Constitutional: WD/WN, vitals as above well developed, well nourished, + ill appearing and + obese Eyes: PERRL, conjunctivae normal, anicteric sclerae ENMT: external ear and nose normal, oropharynx normal Neck: trachea midline, no thyromegaly Respiratory: normal respiratory effort; no respiratory distress Auscultation: lungs clear to auscultation bilaterally and + diminished lung sounds Cardiovascular: Rate/Rhythm: + tachycardic and + irregularly irregular; + abnormal rate and + abnormal rhythm Vessels: normal peripheral pulses Extremities: + edema (+1 pitting edema BLE) Gastrointestinal (Abdomen): normal bowel sounds, soft, nontender, no hepatosplenomegaly Musculoskeletal: no cyanosis or clubbing, extremities motor strength 5/5 Skin: no rashes, warm and dry Neurologic: PERRL, EOMI, accommodation nl, no face palsy, no dysarthria Psychiatric: A+Ox3, euthymic affect Lymphatic: no cervical or axillary lymphadenopathy Results & Data Vital Signs (Past 12 Hours) Vital Signs Temp Pulse Pulse Resp BP Pulse Ox 05/31/19 15:36 36.4 C L 91 H 18 113/71 93 05/31/19 11:27 36.4 C L 84 18 92/62 L 94 05/31/19 08:00 97 H 05/31/19 07:09 36.4 C L 92 H 18 111/77 92 Laboratory Results Short CBC 05/31/19 Range/Units 05:44 WBC 5.73 (4.8-10.8) K/uL Hgb 15.8 (14.0-18.0) g/dL Hct 46.4 (42-52) % Plt Count 218 (130-400) K/uL BMP 05/31/19 05:44 Sodium 140 Potassium 4.4 Chloride 105 Carbon Dioxide 29 BUN 21 H Creatinine 1.39 Glucose 80 Calcium 8.9 Medications Administered Current Inpatient Medications Acetaminophen (Tylenol) 650 mg PO Q4H PRN PRN Reason: Pain or Fever Stop: 06/28/19 15:34 Folic Acid (Folvite) 1 mg PO QAM [facility] Stop: 06/28/19 15:44 Last Admin: 05/31/19 08:49 Dose: 1 mg Documented by: Heparin Sodium/Dextrose (Heparin Sodium/Dextrose) 25,000 units in 500 mls @ 23 mls/hr IV .[id number] [facility]; Protocol Stop: 06/28/19 16:14 Last Titration: 05/31/19 15:08 Dose: 1,150 units/hr, 23 mls/hr Documented by: Furosemide 40 mg/ Syringe 4 mls @ 4 mls/min IV DAILY [facility] Stop: 06/29/19 11:59 Last Admin: 05/31/19 08:49 Dose: 4 mls/min Documented by: Lorazepam (Ativan) 1 mg PO ONE PRN; Protocol PRN Reason: EtoH Withdrawal AWSS 6-10 Metoprolol Tartrate (Lopressor) 50 mg PO BID [facility] Stop: 06/30/19 08:59 Last Admin: 05/31/19 09:41 Dose: 50 mg Documented by: Multivitamins (Multivitamin Tab) 1 tab PO QAM [facility] Stop: 06/28/19 15:59 Last Admin: 05/31/19 08:49 Dose: 1 tab Documented by: Thiamine HCl (Vitamin B-1) 100 mg PO QAM [facility] Stop: 06/28/19 15:44 Last Admin: 05/31/19 08:49 Dose: 100 mg Documented by:
[2019-06-01] MEDS: HEPARIN SODIUM/DEXTROSE 25,000 UNITS/500 ML BAG IV SCH (03:58)
[2019-06-01] MEDS ORDERED: HEPARIN SODIUM/DEXTROSE 25,000 UNITS/500 ML BAG IV SCH (04:00)
[2019-06-01 07:48] LABS: Partial Thromboplastin Ratio 2.3
[2019-06-01 08:03] LABS: Calcium 9.2 mg/dl (8.5-10.1); Creatinine Clr Calc Pharmacy 67.1 ml/min; Est GFR (Non-African American) 56.1; Magnesium 2.2 mg/dl (1.8-2.4); Partial Thromboplastin Time 61.3 Seconds (21.0-31.0); Potassium 4.1 mmol/L (3.5-5.1)
[2019-06-01] MEDS ORDERED: MIDAZOLAM HCL 1 MG/ML 2ML VIAL ONE (08:13)
[2019-06-01] MEDS ORDERED: fentaNYL citrate 100 MCG/2 ML VIAL ONE (08:13)
[2019-06-01] MEDS ORDERED: HEPARIN (PORCINE) 1000 UNIT/ML 10 ML (CATH LAB USE ONLY) ONE (08:13)
[2019-06-01] MEDS ORDERED: NiCARDipine HCL INJ 2.5 MG/ML 10 ML AMP ONE (08:13)
[2019-06-01] MEDS ORDERED: NITROGLYCERIN/D5W 100MCG/ML 20ML SYR ONE (08:14)
--- NOTE | 2019-06-01 08:41 | Pre Anesthesia Assessment ---
Date of Service June 01, 2019 Pre Sedation Assessment Vital Signs Temp Pulse Pulse Resp BP BP Pulse Ox 06/01/19 07:08 174 H 170/99 H 06/01/19 07:06 36.6 C 85 18 105/70 93 06/01/19 03:53 36.5 C 72 18 108/67 94 06/01/19 00:09 36.5 C 86 16 96/66 L 97 05/31/19 20:00 36.7 C 80 18 107/77 96 05/31/19 15:36 36.4 C L 91 H 18 113/71 93 05/31/19 11:27 36.4 C L 84 18 92/62 L 94 Cardiovascular RRR, no murmur, no edema Respiratory normal respiratory effort, lungs clear to auscultation Pre-Sedation Airway Assessment Smoking Status: Current every day smoker Mallampati Class: II ASA: ASA4 Procedure Planning Contraindications for Sedation: none Current Medications Reviewed: Yes Notes The planned sedation has been discussed with the patient. Informed Consent was obtained. I have identified the patient, determined the appropriateness of sedation and have assessed the patient immediately prior to the procedure. All medicine(s) and interventions are by my order.
[2019-06-01] MEDS ORDERED: ASPIRIN 81 MG CHEW ONE (08:46)
--- NOTE | 2019-06-01 09:46 | Post Anesthesia Assessment ---
Date of Service June 01, 2019 Post Sedation Assessment Vital Signs Temp Pulse Pulse Resp BP BP Pulse Ox 06/01/19 07:08 174 H 170/99 H 06/01/19 07:06 36.6 C 85 18 105/70 93 06/01/19 03:53 36.5 C 72 18 108/67 94 06/01/19 00:09 36.5 C 86 16 96/66 L 97 05/31/19 20:00 36.7 C 80 18 107/77 96 05/31/19 15:36 36.4 C L 91 H 18 113/71 93 05/31/19 11:27 36.4 C L 84 18 92/62 L 94 Recovery Score Activity: Moves 4 extremities Respiration: Deep Breath/Cough Circulation: +/-20% PreAnes Value Consciousness: Fully Awake Oxygen Saturation: > 92% On Room Air Post Sedation Plan On clinical assessment, the patient appears to have tolerated the sedation without complications. Patient is recovering as anticipated. Patient will continue to be monitored by nursing and may be discharged when sedation discharge criteria are met per below protocol. Upon Completions of procedure and additional 15 minutes continue every 5 minute vital signs and the P.A.R. score; then discharge to a Phase I or Fast Track to Phase II per the following guidelines: * Discharge Patient to appropriate Phase II area if PAR is 8 or greater or return to pre- procedure baseline. The post - procedure orders will be as directed. * If PAR score is less than 8 or not return to pre-procedure baseline then patient will follow Phase I monitoring till PAR is reached for Phase II. The Phase I may be done in procedure room or may call to secure a Phase I area. * If naloxone or flumazenil are used for reversal, hold in Phase I for continued monitoring from when last reversal dose was given for a minimum of 60 minutes or longer pending the nurse and/or physician discretion of patient condition before discharge to Phase II. Please call the Sedation Physician to re-evaluate and complete post-note for discharge to Phase II area. Do NOT discharge from procedure sedation or Phase 1 until post- sedation evaluation note is complete by procedure /sedation MD Sedation Discharge Instructions to be given to the patient at discharge to home.
--- NOTE | 2019-06-01 09:48 | Cardiac Catheterization ---
Cardiac Cath Procedure Full Procedure Date June 01, 2019 Pre-Procedure Diagnosis Pre-Procedure Diagnosis: CHF, Cardiomyopathy and Arrhythmia AUC Score AUC Score: 7 Post-Procedure Diagnosis Post-Procedure Diagnosis: Mild CAD and Elevated Intracardiac Pressures Procedure(s) Performed Procedure(s) Performed: Coronary Angiography and Left Heart Cath Vending Manager Vasquez Bowman DO Still Cleaner(s) Amaury RTR Estimated Blood Loss Estimated Blood Loss: 5cc Medication(s) Medication(s): Aspirin, Fentanyl, Lidocaine 1% and Versed Summary of Findings 30-40% proximal LAD unchanged from previous study 2011. Hemodynamics Rest Ao:: 92/65/78 Final Ao: 101/70/84 LV: 110/15/22 Recommendations Recommendations: Medical Therapy and/or Counseling Specimens Specimens: None Radiation Exposure (mGy) 934 Contrast (mls) 70cc Anesthesia Moderate sedation. Start 0845. End 0940. Sedation monitor: Mark FRANCES Procedural Complication(s) None Disposition PCU ACC Data: Label Coder Cardiac Status Clinical evaluation leading to the procedure CAD Presenation: Stable angina Anginal Classification: CCS III Heart Failure: NYHA Class: CCS III Cardiogenic Shock within 24 Hours: No Cardiac Arrest within 24 Hours: No Imaging Studies Past 6 Months: Yes Stress Studies Past 6 Months: No Coronary Anatomy Dominant: Right Left Main (% Stenosis): Normal LAD (% Stenosis): Proximal (30-40%) D1 (% Stenosis): Mid (10%) Circumflex (% Stenosis): Normal OM1 (% Stenosis): Normal OM2 (% Stenosis): Normal RCA (% Stenosis): Proximal (10%) and Mid (20%) R PDA (% Stenosis): Normal R PL1 (% Stenosis): Normal Diagnostic Physicians Name: Vasquez Bowman DO Status: Urgent Closure Device Percutaneous Entry Location: Femoral Closure Device: Mynx Recommendations: Medical Therapy and/or Counseling Intraprocedure Events Significant Disection: No Perforation: No
[2019-06-01] MEDS ORDERED: HYDROmorphone INJ 0.5 MG/0.5 ML SYR IV PRN (12:03)
[2019-06-01] MEDS: METOPROLOL TARTRATE 50 MG TAB PO SCH ×2 (13:21→21:45)
[2019-06-01] MEDS: FOLIC ACID 1 MG TAB PO SCH (13:30)
[2019-06-01] MEDS: FUROSEMIDE 40 MG in SYRINGE 0 ML IV SCH (13:30)
[2019-06-01] MEDS: THIAMINE HCL 100 MG TAB PO SCH (13:30)
[2019-06-01] MEDS: MULTIVITAMIN TAB PO SCH (13:30)
--- NOTE | 2019-06-01 13:44 | Hospitalist Progress Note ---
Date of Service June 01, 2019 Assessment & Plan (1) Atrial fibrillation with RVR: -Patient presenting from home with reports of increasing shortness of breath over the past 1 to 2 months -Has atrial fibrillation RVR with heart rate in the 140s -Remote history of paroxysmal atrial fibrillation, was placed on beta-cecelia, was not anticoagulated secondary to low CHADS2 score and EtOH abuse -He was started with intravenous Cardizem and there are changed to oral beta- cecelia to control the heart rate -Echo did show cardiomyopathy with EF of 15 to 20% -Has been on heparin -Clinically little bit better -Appreciate cardiology input and recommendation -Likely to have cardiac cath to rule out any significant CAD -Status post cardiac cath this morning 06/01 which showed mild CAD and elevated intracardiac pressure -Medical management contemplated (2) Acute CHF: -Patient reporting orthopnea and has pitting lower extremity edema on exam, elevated proBNP -Secondary to cardiomyopathy with reduced EF -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 -Has been getting intravenous Lasix with some improvement -May need cardiac arrest on discharge and ICD placement down the line -Has any symptoms of food overload and/or CHF (3) Alcohol abuse: -Patient reports having 10-12 liquor drinks/day -Reports no use in the past 3 days due to being ill, no signs of withdrawal -Cardiomyopathy and atrial fibrillation seems to be secondary to use of alcohol -Does not have any withdrawal symptoms (4) Dyslipidemia: -Continue statin (5) DVT prophylaxis: -On IV heparin drip -Will likely need long-term anticoagulation Await cardiology recommendation before discharge Subjective 05/30 Patient was seen and examined in the telemetry unit He complains to have weakness and tiredness at rest Shortness of breath on exertion Denies any chest pain and/or palpitation, any nausea no vomiting 05/31 The patient was seen and examined in telemetry unit He denies any symptoms at rest Gets short of breath on minimal exertion without any chest pain 06/01 Patient seen and examined in telemetry unit He is status post left heart catheterization Complains to have some back pain not relieved with Tylenol Denies any shortness of breath and/or chest pain Review of Systems Review of Systems: All systems reviewed and are unremarkable except as noted below Constitutional: + fatigue, + weakness and + anorexia Respiratory: + dyspnea on exertion Cardiovascular: + dyspnea; no chest pain Physical Exam Physical Exam: Lying in bed with some discomfort secondary to back pain without radiation Constitutional: well developed, well nourished, + ill appearing and + obese; no acute distress Eyes: PERRL, conjunctivae normal, anicteric sclerae ENMT: external ear and nose normal, oropharynx normal Neck: trachea midline, no thyromegaly Respiratory: normal respiratory effort; no respiratory distress Auscu ltation: lungs clear to auscultation bilaterally and + diminished lung sounds Cardiovascular: Rate/Rhythm: + tachycardic and + irregularly irregular; + abnormal rate and + abnormal rhythm Vessels: normal peripheral pulses Extremities: + edema (+1 pitting edema BLE) Gastrointestinal (Abdomen): Inspection/Auscultation: abdomen normal to inspection and normal bowel sounds Percussion/Palpation: abdomen soft; abdomen nontender Musculoskeletal: no cyanosis or clubbing, extremities motor strength 5/5 Back pain without radiation and no acute arthritis Skin: no rashes, warm and dry Neurologic: PERRL, EOMI, accommodation nl, no face palsy, no dysarthria Psychiatric: A+Ox3, euthymic affect Lymphatic: no cervical or axillary lymphadenopathy Results & Data Vital Signs (Past 12 Hours) Vital Signs Temp Pulse Pulse Resp BP BP Pulse Ox 06/01/19 11:58 98 H 18 115/77 94 06/01/19 11:13 36.5 C 103 H 22 106/80 93 06/01/19 10:28 76 16 109/81 92 06/01/19 10:01 36.4 C L 81 16 111/74 94 06/01/19 07:08 174 H 170/99 H 06/01/19 07:06 36.6 C 85 18 105/70 93 06/01/19 03:53 36.5 C 72 18 108/67 94 Laboratory Results [facility] 06/01/19 07:10 Sodium 140 Potassium 4.1 Chloride 104 Carbon Dioxide 31 BUN 24 H Creatinine 1.33 Glucose 86 Calcium 9.2 Medications Administered Current Inpatient Medications Acetaminophen (Tylenol) 650 mg PO Q4H PRN PRN Reason: Pain or Fever Stop: 06/28/19 15:34 Last Admin: 06/01/19 10:43 Dose: 650 mg Documented by: Folic Acid (Folvite) 1 mg PO [facility] Stop: 06/28/19 15:44 Last Admin: 06/01/19 13:30 Dose: 1 mg Documented by: Hydromorphone HCl (Dilaudid) 0.5 mg IV Q4H PRN PRN Reason: Pain Stop: 06/15/19 12:02 Last Admin: 06/01/19 12:26 Dose: 0.5 mg Documented by: Furosemide 40 mg/ Syringe 4 mls @ 4 mls/min IV DAILY [facility] Stop: 06/29/19 11:59 Last Admin: 06/01/19 13:30 Dose: 4 mls/min Documented by: Heparin Sodium/Dextrose (Heparin Sodium/Dextrose) 25,000 units in 500 mls @ 0 mls/hr IV .Q0M [facility]; Protocol Stop: 07/01/19 03:59 Last Titration: 06/01/19 12:17 Dose: Infused Documented by: Lorazepam (Ativan) 1 mg PO ONE PRN; Protocol PRN Reason: EtoH Withdrawal AWSS 6-10 Metoprolol Tartrate (Lopressor) 50 mg PO BID [facility] Stop: 06/30/19 08:59 Last Admin: 06/01/19 13:21 Dose: 50 mg Documented by: Multivitamins (Multivitamin Tab) 1 tab PO [facility] Stop: 06/28/19 15:59 Last Admin: 06/01/19 13:30 Dose: 1 tab Documented by: Thiamine HCl (Vitamin B-1) 100 mg PO [facility] Stop: 06/28/19 15:44 Last Admin: 06/01/19 13:30 Dose: 100 mg Documented by:
[2019-06-02] MEDS ORDERED: Nursing to Pharmacy Communication ONE (00:07)
[2019-06-02] MEDS ORDERED: HEPARIN SODIUM/DEXTROSE 25,000 UNITS/500 ML BAG IV SCH (00:45)
[2019-06-02] MEDS: MULTIVITAMIN TAB PO SCH (07:56)
[2019-06-02] MEDS: THIAMINE HCL 100 MG TAB PO SCH (07:56)
[2019-06-02] MEDS: FOLIC ACID 1 MG TAB PO SCH (07:56)
[2019-06-02] MEDS: FUROSEMIDE 40 MG in SYRINGE 0 ML IV SCH (07:56)
[2019-06-02] MEDS: METOPROLOL TARTRATE 50 MG TAB PO SCH (07:56)
[2019-06-02 09:01] LABS: Hematocrit (blood only) 48.3 % (42-52); Hemoglobin 16.4 g/dL (14.0-18.0); Mean Corpuscular Volume 91.5 fL (80-100); Mean Platelet Volume 10.7 fL (7.4-10.4); Platelet Count 222 K/uL (130-400); RDW Coefficient of Variation 14.2 % (11.5-14.5); RDW Standard Deviation 47.5 fL (36.4-46.3); Red Blood Count 5.28 M/uL (4.7-6.1); White Blood Count 5.94 K/uL (4.8-10.8)
[2019-06-02 09:19] LABS: BUN Creatinine Ratio 16.9 (10-20); Calcium 9.1 mg/dl (8.5-10.1); Creatinine Clr Calc Pharmacy 70.2 ml/min; Est GFR (African American) 68.7; Est GFR (Non-African American) 59.3; Magnesium 2.3 mg/dl (1.8-2.4); Potassium 3.7 mmol/L (3.5-5.1)
[2019-06-02 09:25] LABS: Partial Thromboplastin Ratio 1.8
[2019-06-02 09:36] LABS: Partial Thromboplastin Time 48.9 Seconds (21.0-31.0)
--- NOTE | 2019-06-02 09:59 | Cardiology Progress Note ---
Date of Service June 02, 2019 Assessment & Plan (1) Atrial fibrillation with RVR: Rates are slowing down to controlled. Elevated heart rate may have contributed to onset of cardiomyopathy in addition to above processes below. We will optimize medical therapy change metoprolol tartrate to metoprolol succinate 50 mg twice per day Change anticoagulation from heparin to Eliquis May ultimately benefit from return to sinus rhythm in 4 weeks depending on clinical response (2) Cardiomyopathy: Nonischemic origin by heart catheterization. Ultimate goals optimal medical regimen. Change to CHF indicated beta-cecelia with Toprol-XL 50 twice daily, initiate GABY inhibitor with very low-dose lisinopril 1.25 mill grams p.o. daily first dose today. Anticoagulation as above Stop IV furosemide after dose today with anticipated oral dose on discharge Recheck renal function in a.m. consider spironolactone on discharge or shortly after on follow-up will need close clinical follow-up post discharge in a.m. Iron studies and transferrin level added to the a.m. (3) Acute systolic (congestive) heart failure: Management of above as listed above ultimately goals optimal guideline directed medical regimen (4) LBBB (left bundle branch block): (5) Severe mitral regurgitation: (6) Alcohol abuse: Discussed avoidance of any cardiac toxins including alcohol post discharge Subjective Patient seen and examined at the bedside. Underwent cardiac catheterization yesterday with good tolerance. No bleeding at access site. No dizziness or lightheadedness no worsening shortness of breath. Heart rates have been generally controlled in the 80s and 90s on current medical regimens no tachyarrhythmias. Anticoagulation initiated with heparin once cath completed with anticipation switch to oral today Physical Exam Constitutional: WD/WN, vitals as above Eyes: PERRL, conjunctivae normal, anicteric sclerae ENMT: external ear and nose normal, oropharynx normal Neck: trachea midline, no thyromegaly Respiratory: normal respiratory effort, lungs clear to auscultation Cardiovascular: Rate/Rhythm: + irregularly irregular Heart Sounds: normal S1 and normal S2; no gallop and no murmur Vessels: normal carotid upstroke an d radial pulses present; no JVD and no carotid bruit Extremities: + edema (Trace to 1+) Gastrointestinal (Abdomen): normal bowel sounds, soft, nontender, no hepatosplenomegaly Musculoskeletal: no cyanosis or clubbing, extremities motor strength 5/5 Skin: no rashes, warm and dry Neurologic: PERRL, EOMI, accommodation nl, no face palsy, no dysarthria Psychiatric: A+Ox3, euthymic affect Results & Data Vital Signs (Past 12 Hours) Vital Signs Temp Pulse Pulse Resp BP Pulse Ox 06/02/19 08:00 84 06/02/19 07:59 111 H 102/62 06/02/19 07:24 36.2 C L 104 H 20 99/68 L 96 06/02/19 03:42 36.4 C L 76 18 93/67 L 95 06/02/19 00:52 36.3 C L 06/02/19 00:12 100 H 16 129/77 96 Laboratory Results Laboratory Results - last 24 hr 06/02/19 06/02/19 06/02/19 08:51 08:51 08:51 WBC 5.94 RBC 5.28 Hgb 16.4 Hct 48.3 MCV 91.5 MCH 31.1 MCHC 34.0 RDW Std Deviation 47.5 H RDW Coeff of Joao 14.2 Plt Count 222 MPV 10.7 H APTT 48.9 H* PTT Ratio 1.8 Sodium 139 Potassium 3.7 Chloride 102 Carbon Dioxide 31 Anion Gap 6.0 BUN 21 H Creatinine 1.27 Est Cr Clr Drug Dosing 70.2 Est GFR ( Amer) 68.7 Est GFR (Non-Af Amer) 59.3 BUN/Creatinine Ratio 16.9 Glucose 112 H Calcium 9.1 Magnesium 2.3 (1) Cardiomyopathy Cardiomyopathy type: alcoholic Qualified Code(s): I42.6 - Alcoholic cardiomyopathy
[2019-06-02] MEDS: LISINOPRIL 2.5 MG TAB PO SCH (13:13)
[2019-06-02] MEDS: APIXABAN 5 MG TABLET PO SCH ×2 (13:13→21:12)
--- NOTE | 2019-06-02 14:55 | Hospitalist Progress Note ---
Date of Service June 02, 2019 Assessment & Plan (1) Nonischemic cardiomyopathy: Status post cardiac cath on 06/01/2019 Acute CHF is secondary to cardiomyopathy with EF of 15 to 20% Has been on Toprol-XL, lisinopril has been started and furosemide continued Likely be discharged tomorrow Present on Admission?: Yes (2) Atrial fibrillation with RVR: -Patient presenting from home with reports of increasing shortness of breath over the past 1 to 2 months -Has atrial fibrillation RVR with heart rate in the 140s -Remote history of paroxysmal atrial fibrillation, was placed on beta-cecelia, was not anticoagulated secondary to low CHADS2 score and EtOH abuse -He was started with intravenous Cardizem and there are changed to oral beta- cecelia to control the heart rate -Echo did show cardiomyopathy with EF of 15 to 20% -Has been on heparin -Clinically little bit better -Appreciate cardiology input and recommendation -Likely to have cardiac cath to rule out any significant CAD -Status post cardiac cath this morning 06/01 which showed mild CAD and elevated intracardiac pressure -Has been started with lisinopril very small dose and today beta-cecelia changed to metoprolol succinate 50 mg twice daily -Denies any cardiac symptoms -Likely discharge tomorrow (3) Acute CHF: -Patient reporting orthopnea and has pitting lower extremity edema on exam, elevated proBNP -Secondary to cardiomyopathy with reduced EF -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 -Has been getting intravenous Lasix with some improvement -May need cardiac arrest on discharge and ICD placement down the line -Has any symptoms of food overload and/or CHF -Oral furosemide on discharge (4) Alcohol abuse: -Patient reports having 10-12 liquor drinks/day -Reports no use in the past 3 days due to being ill, no signs of withdrawal -Cardiomyopathy and atrial fibrillation seems to be secondary to use of alcohol -Does not have any withdrawal symptoms (5) Dyslipidemia: -Continue statin (6) DVT prophylaxis: -On IV heparin drip -Will likely need long-term anticoagulation -Eliquis has been started Await cardiology recommendation before discharge Subjective 05/30 Patient was seen and examined in the telemetry unit He complains to have weakness and tiredness at rest Shortness of breath on exertion Denies any chest pain and/or palpitation, any nausea no vomiting 05/31 The patient was seen and examined in telemetry unit He denies any symptoms at rest Gets short of breath on minimal exertion without any chest pain 06/01 Patient seen and examined in telemetry unit He is status post left heart catheterization Complains to have some back pain not relieved with Tylenol Denies any shortness of breath and/or chest pain 06/02 The patient was seen and examined in telemetry unit He remains stable with weakness and tiredness on minimal exertion Denies any chest pain and/or palpitation Review of Systems Review of Systems: All systems reviewed and are unremarkable except as noted below Constitutional: + fatigue, + weakness and + anorexia Respiratory: + dyspnea on exertion Cardiovascular: + dyspnea; no chest pain Physical Exam Physical Exam: No apparent distress at rest Constitutional: well developed, well nourished, + ill appearing and + obese; no acute distress Eyes: PERRL, conjunctivae normal, anicteric sclerae ENMT: external ear and nose normal, oropharynx normal Neck: trachea midline, no thyromegaly Respiratory: normal respiratory effort; no respiratory distress Auscultation: lungs clear to auscultation bilaterally and + diminished lung sounds Cardiovascular: Rate/Rhythm: + tachycardic and + irregularly irregular; + abnormal rate and + abnormal rhythm Vessels: normal peripheral pulses Extremities: + edema (+1 pitting edema BLE) Gastrointestinal (Abdomen): normal bowel sounds, soft, nontender, no hepatosplenomegaly Inspection/Auscultation: abdomen normal to inspection and normal bowel sounds Percussion/Palpation: abdomen soft; abdomen nontender Musculoskeletal: no cyanosis or clubbing, extremities motor strength 5/5 Skin: no rashes, warm and dry Neurologic: PERRL, EOMI, accommodation nl, no face palsy, no dysarthria Psychiatric: A+Ox3, euthymic affect Lymphatic: no cervical or axillary lymphadenopathy Results & Data Vital Signs (Past 12 Hours) Vital Signs Temp Pulse Pulse Resp BP Pulse Ox 06/02/19 11:02 36.3 C L 95 H 20 108/70 96 06/02/19 08:00 84 06/02/19 07:59 111 H 102/62 06/02/19 07:24 36.2 C L 104 H 20 99/68 L 96 06/02/19 03:42 36.4 C L 76 18 93/67 L 95 Laboratory Results Short CBC 06/02/19 Range/Units 08:51 WBC 5.94 (4.8-10.8) K/uL Hgb 16.4 (14.0-18.0) g/dL Hct 48.3 (42-52) % Plt Count 222 (130-400) K/uL [facility] 06/02/19 08:51 Sodium 139 Potassium 3.7 Chloride 102 Carbon Dioxide 31 BUN 21 H Creatinine 1.27 Glucose 112 H Calcium 9.1 Medications Administered Current Inpatient Medications Acetaminophen (Tylenol) 650 mg PO Q4H PRN PRN Reason: Pain or Fever Stop: 06/28/19 15:34 Last Admin: 06/01/19 10:43 Dose: 650 mg Documented by: Apixaban (Eliquis) 5 mg PO BID [facility] Stop: 07/02/19 09:59 Last Admin: 06/02/19 13:13 Dose: 5 mg Documented by: Folic Acid (Folvite) [address] [facility] Stop: 06/28/19 15:44 Last Admin: 06/02/19 07:56 Dose: 1 mg Documented by: Hydromorphone HCl (Dilaudid) 0.5 mg IV Q4H PRN PRN Reason: Pain Stop: 06/15/19 12:02 Last Admin: 06/01/19 12:26 Dose: 0.5 mg Documented by: Lisinopril (Zestril) 1.[address] [facility] Stop: 07/02/19 09:59 Last Admin: 06/02/19 13:13 Dose: 1.25 mg Documented by: Lorazepam (Ativan) 1 mg PO ONE PRN; Protocol PRN Reason: EtoH Withdrawal AWSS 6-10 Metoprolol Succinate (Toprol Xl) 50 mg PO BID [facility] Stop: 07/02/19 20:59 Multivitamins (Multivitamin Tab) [address] [facility] Stop: 06/28/19 15:59 Last Admin: 06/02/19 07:56 Dose: 1 tab Documented by: Thiamine HCl (Vitamin B-1) [address] [facility] Stop: 06/28/19 15:44 Last Admin: 06/02/19 07:56 Dose: 100 mg Documented by:
[2019-06-02] MEDS: METOPROLOL SUCC 50MG EXT REL TAB PO SCH (21:13)
[2019-06-03 08:33] LABS: Partial Thromboplastin Ratio 1.1; Partial Thromboplastin Time 28.6 Seconds (21.0-31.0)
[2019-06-03] MEDS: FOLIC ACID 1 MG TAB PO SCH (08:41)
[2019-06-03] MEDS: METOPROLOL SUCC 50MG EXT REL TAB PO SCH (08:41)
[2019-06-03] MEDS: APIXABAN 5 MG TABLET PO SCH (08:41)
[2019-06-03] MEDS: MULTIVITAMIN TAB PO SCH (08:41)
[2019-06-03] MEDS: THIAMINE HCL 100 MG TAB PO SCH (08:41)
[2019-06-03 08:51] LABS: BUN Creatinine Ratio 17.1 (10-20); Creatinine Clr Calc Pharmacy 76.9 ml/min; Est GFR (African American) 76.7; Est GFR (Non-African American) 66.2; Potassium 4.2 mmol/L (3.5-5.1)
--- NOTE | 2019-06-03 11:03 | Hospitalist Progress Note ---
Date of Service June 03, 2019 Assessment & Plan (1) Nonischemic cardiomyopathy: Status post cardiac cath on 06/01/2019 Acute CHF is secondary to cardiomyopathy with EF of 15 to 20% Has been on Toprol-XL, lisinopril has been started and furosemide continued Denies any cardiac symptoms of chest pain/palpitation/shortness of breath Will discharge home this afternoon Will need to take cardiology appointment within 1 week (2) Atrial fibrillation with RVR: -Patient presenting from home with reports of increasing shortness of breath over the past 1 to 2 months -Has atrial fibrillation RVR with heart rate in the 140s -Remote history of paroxysmal atrial fibrillation, was placed on beta-cecelia, was not anticoagulated secondary to low CHADS2 score and EtOH abuse -He was started with intravenous Cardizem and there are changed to oral beta- cecelia to control the heart rate -Echo did show cardiomyopathy with EF of 15 to 20% -Has been on heparin -Clinically little bit better -Appreciate cardiology input and recommendation -Likely to have cardiac cath to rule out any significant CAD -Status post cardiac cath this morning 06/01 which showed mild CAD and elevated intracardiac pressure -Has been started with lisinopril very small dose and today beta-cecelia changed to metoprolol succinate 50 mg twice daily -Denies any cardiac symptoms -Heart rate is controlled (3) Acute CHF: -Patient reporting orthopnea and has pitting lower extremity edema on exam, elevated proBNP -Secondary to cardiomyopathy with reduced EF -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 -Has been getting intravenous Lasix with some improvement -May need cardiac arrest on discharge and ICD placement down the line -Has any symptoms of food overload and/or CHF -Oral furosemide on discharge (4) Alcohol abuse: -Patient reports having 10-12 liquor drinks/day -Reports no use in the past 3 days due to being ill, no signs of withdrawal -Cardiomyopathy and atrial fibrillation seems to be secondary to use of alcohol -Does not have any withdrawal symptoms -Advised to completely quit alcohol intake (5) Dyslipidemia: -Continue statin (6) DVT prophylaxis: -On IV heparin drip -Will likely need long-term anticoagulation -Eliquis has been started Will need outpatient cardiology follow-up in 1 week Subjective 05/30 Patient was seen and examined in the telemetry unit He complains to have weakness and tiredness at rest Shortness of breath on exertion Denies any chest pain and/or palpitation, any nausea no vomiting 05/31 The patient was seen and examined in telemetry unit He denies any symptoms at rest Gets short of breath on minimal exertion without any chest pain 06/01 Patient seen and examined in telemetry unit He is status post left heart catheterization Complains to have some back pain not relieved with Tylenol Denies any shortness of breath and/or chest pain 06/02 The patient was seen and examined in telemetry unit He remains stable with weakness and tiredness on minimal exertion Denies any chest pain and/or palpitation 06/03 Patient was seen and examined in telemetry unit He remains generally weak but denies any symptoms Blood pressure remains in the lower side of normal without any symptoms He will be discharged home this afternoon Review of Systems Review of Systems: All systems reviewed and are unremarkable except as noted below Constitutional: + weakness Cardiovascular: no chest pain, no dyspnea, no dyspnea on exertion and no orthopnea Physical Exam Physical Exam: No apparent distress at rest Constitutional: well developed, well nourished and + obese; no acute distress Eyes: PERRL, conjunctivae normal, anicteric sclerae ENMT: external ear and nose normal, oropharynx normal Neck: trachea midline, no thyromegaly Respiratory: normal respiratory effort; no respiratory distress Auscultation: lungs clear to auscultation bilaterally and + diminished lung sounds Cardiovascular: Rate/Rhythm: + tachycardic and + irregularly irregular; + abnormal rate and + abnormal rhythm Vessels: normal peripheral pulses Extremities: + edema (+1 pitting edema BLE and improving) Gastrointestinal (Abdomen): normal bowel sounds, soft, nontender, no hepatosplenomegaly Inspection/Auscultation: abdomen normal to inspection and normal bowel sounds Percussion/Palpation: abdomen soft; abdomen nontender Skin: no rashes, warm and dry Neurologic: PERRL, EOMI, accommodation nl, no face palsy, no dysarthria Psychiatric: A+Ox3, euthymic affect Lymphatic: no cervical or axillary lymphadenopathy Results & Data Vital Signs (Past 12 Hours) Vital Signs Temp Pulse Pulse Resp BP BP Pulse Ox 06/03/19 10:43 101 H 99/67 L 06/03/19 08:00 88 06/03/19 07:47 36.5 C 90 18 93/58 L 91 06/03/19 03:30 36.6 C 93 H 18 113/76 95 06/03/19 00:26 36.8 C 90 18 112/69 95 Laboratory Results BMP 06/03/19 08:00 Sodium 140 Potassium 4.2 Chloride 104 Carbon Dioxide 30 BUN 20 H Creatinine 1.16 Glucose 86 Calcium 9.0 Medications Administered Current Inpatient Medications Acetaminophen (Tylenol) 650 mg PO Q4H PRN PRN Reason: Pain or Fever Stop: 06/28/19 15:34 Last Admin: 06/01/19 10:43 Dose: 650 mg Documented by: Apixaban (Eliquis) 5 mg PO BID [facility] Stop: 07/02/19 09:59 Last Admin: 06/03/19 08:41 Dose: 5 mg Documented by: Folic [facility]) [facility] [place] Stop: 06/28/19 15:44 Last Admin: 06/03/19 08:41 Dose: 1 mg Documented by: Hydromorphone HCl (Dilaudid) 0.5 mg IV Q4H PRN PRN Reason: Pain Stop: 06/15/19 12:02 Last Admin: 06/01/19 12:26 Dose: 0.5 mg Documented by: Lisinopril [facility]estril) [facility] [place] [facility] Stop: 07/02/19 09:59 Last Admin: 06/02/19 13:13 Dose: 1.25 mg Documented by: Lorazepam (Ativan) 1 mg PO ONE PRN; Protocol PRN Reason: EtoH Withdrawal AWSS 6-10 Metoprolol Succinate (Toprol Xl) 50 mg PO BID [facility] Stop: 07/02/19 20:59 Last Admin: 06/03/19 08:41 Dose: 50 mg Documented by: Multivitamins (Multivitamin Tab) 1 tab PO [facility] Stop: 06/28/19 15:59 Last Admin: 06/03/19 08:41 Dose: 1 tab Documented by: Thiamine HCl (Vitamin B-1) 100 mg PO [facility] Stop: 06/28/19 15:44 Last Admin: 06/03/19 08:41 Dose: 100 mg Documented by:
[2019-06-03] MEDS: LISINOPRIL 2.5 MG TAB PO SCH (11:18)
--- NOTE | 2019-06-03 11:30 | Cardiology Progress Note ---
Date of Service June 03, 2019 Assessment & Plan (1) Atrial fibrillation with RVR: Rates are slowing down to controlled. Patient on appropriate therapies now anticoagulated with Eliquis (2) Cardiomyopathy: Nonischemic origin by heart catheterization. Ultimate goals optimal medical regimen. Change to CHF indicated beta-cecelia with Toprol-XL 50 twice daily, initiate GABY inhibitor with very low-dose lisinopril 1.25 mill grams p.o. daily first dose today. Anticoagulation as above We will add oral furosemide at 20 mg/day continue lisinopril and metoprolol as ordered CHF instructions to be given Close clinical follow-up with discharge today and follow-up in 1 week's time or less (3) Acute systolic (congestive) heart failure: Management of above as listed above ultimately goals optimal guideline directed medical regimen (4) LBBB (left bundle branch block): (5) Severe mitral regurgitation: (6) Alcohol abuse: Discussed avoidance of any cardiac toxins including alcohol post discharge Subjective Patient seen and examined at the bedside. No complaints this morning. No chest pains or discomfort. No orthopnea or worsening peripheral edema. No dizziness or lightheadedness. Blood pressures still trending slightly low but good tolerance. Atrial fibrillation controlled. Physical Exam Constitutional: WD/WN, vitals as above Eyes: PERRL, conjunctivae normal, anicteric sclerae ENMT: external ear and nose normal, oropharynx normal Neck: trachea midline, no thyromegaly Respiratory: normal respiratory effort, lungs clear to auscultation Cardiovascular: Rate/Rhythm: + irregularly irregular Heart Sounds: normal S1 and normal S2; no gallop and no murmur Vessels: normal carotid upstroke and radial pulses present; no JVD and no carotid bruit Extremities: + edema (Trace to 1+) Gastrointestinal (Abdomen): normal bowel sounds, soft, nontender, no hepatosplenomegaly Musculoskeletal: no cyanosis or clubbing, extremities motor strength 5/5 Skin: no rashes, warm and dry Neurologic: PERRL, EOMI, accommodation nl, no face palsy, no dysarthria Psychiatric: A+Ox3, euthymic affect Results & Data Vital Signs (Past 12 Hours) Vital Signs Temp Pulse Pulse Resp BP BP Pulse Ox 06/03/19 10:43 101 H 99/67 L 06/03/19 08:00 88 06/03/19 07:47 36.5 C 90 18 93/58 L 91 06/03/19 03:30 36.6 C 93 H 18 113/76 95 06/03/19 00:26 36.8 C 90 18 112/69 95 Laboratory Results Laboratory Results - last 24 hr 06/03/19 06/03/19 08:00 08:00 APTT 28.6 PTT Ratio 1.1 Sodium 140 Potassium 4.2 Chloride 104 Carbon Dioxide 30 Anion Gap 6.0 BUN 20 H Creatinine 1.16 Est Cr Clr Drug Dosing 76.9 Est GFR ( Amer) 76.7 Est GFR (Non-Af Amer) 66.2 BUN/Creatinine Ratio 17.1 Glucose 86 Calcium 9.0 Iron 83 Transferrin 272 Transferrin % Sat 22 (1) Cardiomyopathy Cardiomyopathy type: alcoholic Qualified Code(s): I42.6 - Alcoholic cardiomyopathy
--- NOTE | 2019-06-03 15:22 | Discharge Summary ---
Date of Service June 03, 2019 Admission HPI Per Admitting Provider 63-year-old male who presents to the ED with shortness of breath. Patient reports his symptoms been going on for the past 1 to 2 months and have been progressively getting worse. Patient reports he now experiences shortness of breath at rest and with minimal exertion. He reports orthopnea and some lower extremity edema as well. Patient denies chest pain or palpitations. He has had an associated cough which is been productive for white/clear sputum at times. Patient is a smoker. No lightheadedness, dizziness, diaphoresis, syncopal events. Reports a poor appetite over the past few days however denies abdominal pain, nausea, vomiting, diarrhea. No fevers or chills. Denies urinary symptoms. In the ED, patient is found to be in atrial fibrillation with RVR with heart rates in the 140s. He was given diltiazem 10 mg IV bolus followed by a 5 mg drip and heart rates have improved to the 90s. Labs showed elevated proBNP at 11,314, other labs unremarkable. CXR shows congestive heart failure. Admission Exam Per Admitting Provider Constitutional: WD/WN, vitals as above Eyes: PERRL, conjunctivae normal, anicteric sclerae ENMT: external ear and nose normal, oropharynx normal Respiratory: normal respiratory effort, lungs clear to auscultation Cardiovascular: Rate/Rhythm: + tachycardic and + irregularly irregular Ve ssels: normal peripheral pulses Extremities: + edema (+1 pitting edema BLE) Gastrointestinal (Abdomen): normal bowel sounds, soft, nontender, no hepatosplenomegaly Musculoskeletal: no cyanosis or clubbing, extremities motor strength 5/5 Skin: no rashes, warm and dry Neurologic: PERRL, EOMI, accommodation nl, no face palsy, no dysarthria Psychiatric: A+Ox3, euthymic affect Principal Diagnosis trial fibrillation with RVR, nonischemic cardiomyopathy, acute congestive heart failure, alcohol abuse Discharge Exam Constitutional WD/WN, vitals as above well developed, well nourished and + obese; no acute distress Eyes PERRL, conjunctivae normal, anicteric sclerae ENMT external ear and nose normal, oropharynx normal Neck trachea midline, no thyromegaly Respiratory normal respiratory effort; no respiratory distress Auscultation: lungs clear to auscultation bilaterally and + diminished lung sounds Cardiovascular Rate/Rhythm: + tachycardic and + irregularly irregular; + abnormal rate and + abnormal rhythm Vessels: normal peripheral pulses Extremities: + edema (+1 pitting edema BLE and improving) Gastrointestinal (Abdomen) normal bowel sounds, soft, nontender, no hepatosplenomegaly Inspection/Auscultation: abdomen normal to inspection and normal bowel sounds Percussion/Palpation: abdomen soft; abdomen nontender Musculoskeletal no cyanosis or clubbing, extremities motor strength 5/5 Skin no rashes, warm and dry Neurologic PERRL, EOMI, accommodation nl, no face palsy, no dysarthria Psychiatric A+Ox3, euthymic affect Lymphatic no cervical or axillary lymphadenopathy Discharge Data Allergies Allergy/AdvReac Type Severity Reaction Status Date / Time No Known Allergies Allergy Unverified 05/29/19 13:55 Consultations 05/29/19 13:46 ED Decision to Admit Stat 05/29/19 15:35 Consult Cardiology Routine 05/31/19 14:49 Consult Cardiac Catheterization Routine Procedures Performed Operation Date: 06/01/19 08:00 Actual Procedures p Cath, Left with Cors and Vent - Vasquez Bowman DO s Cineradiography w/Routine Exam - Vasquez Bowman DO Ordered Studies 06/01/19 06:39 CL Cath Imgs for PACS use only Routine Hospital Course (1) Nonischemic cardiomyopathy: Status post cardiac cath on 06/01/2019 Acute CHF is secondary to cardiomyopathy with EF of 15 to 20% Has been on Toprol-XL, lisinopril has been started and furosemide continued Denies any cardiac symptoms of chest pain/palpitation/shortness of breath Will discharge home this afternoon Will need to take cardiology appointment within 1 week (2) Atrial fibrillation with RVR: -Patient presenting from home with reports of increasing shortness of breath over the past 1 to 2 months -Has atrial fibrillation RVR with heart rate in the 140s -Remote history of paroxysmal atrial fibrillation, was placed on beta-cecelia, was not anticoagulated secondary to low CHADS2 score and EtOH abuse -He was started with intravenous Cardizem and there are changed to oral beta- cecelia to control the heart rate -Echo did show cardiomyopathy with EF of 15 to 20% -Has been on heparin -Clinically little bit better -Appreciate cardiology input and recommendation -Likely to have cardiac cath to rule out any significant CAD -Status post cardiac cath this morning 06/01 which showed mild CAD and elevated intracardiac pressure -Has been started with lisinopril very small dose and today beta-cecelia changed to metoprolol succinate 50 mg twice daily -Denies any cardiac symptoms -Heart rate is controlled (3) Acute CHF: -Patient reporting orthopnea and has pitting lower extremity edema on exam, elevated proBNP -Secondary to cardiomyopathy with reduced EF -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 -Has been getting intravenous Lasix with some improvement -May need cardiac arrest on discharge and ICD placement down the line -Has any symptoms of food overload and/or CHF -Oral furosemide on discharge (4) Alcohol abuse: -Patient reports having 10-12 liquor drinks/day -Reports no use in the past 3 days due to being ill, no signs of withdrawal -Cardiomyopathy and atrial fibrillation seems to be secondary to use of alcohol -Does not have any withdrawal symptoms -Advised to completely quit alcohol intake (5) Dyslipidemia: -Continue statin (6) DVT prophylaxis: -On IV heparin drip -Will likely need long-term anticoagulation -Eliquis has been started Will need outpatient cardiology follow-up in 1 week Total Time Total Time Spent Total Time Spent (In Minutes): 35 minutes Total Time Includes: Examination of the Patient, Discharge Planning, Medication Reconciliation and Communication With Other Providers Discharge Plan Discharge Items Patient Disposition: Home - Self-Care Reason For Visit: AFIB RVR Discharge Diagnosis: Atrial fibrillation with RVR, nonischemic cardiomyopathy, acute congestive heart failure, alcohol abuse Condition: Fair Discharge Goals: Decrease discomfort, Increase independence and Improve nutritional status Activity: Resume your previous activity Activity Comment: No strenuous activities Non-emergency contact: Primary Care Provider Call non-emergency contact if: you have any medication questions and your symptoms worsen Follow-up/Referrals: Du Chopra MD [Primary Care Provider] - (Your doctor's office will call with an appointment within 7 days. You need to have follow-up appointment with material reprocessing associate in 1 week too) Diet: Heart Healthy Fluids: 1800ml (7 cups) Addtl Provider Instructions: To acute it easy until you are being evaluated by material reprocessing associate. New medications: Eliquis 5 mg twice daily Folic acid 1 mg daily Lisinopril 1.25 mg daily Furosemide 20 mg daily Metoprolol succinate 50 mg twice daily Multivitamin 1 tablet daily and thiamine 100 mg daily. Advised to avoid alcohol completely Call 911 and go to the Emergency Room if: * You have tightness or pain in your chest that does not go away with rest or Nitroglycerin * You are very short of breath even with rest Call your doctor if any of the following symptoms or problems start or get worse: * Shortness of breath or difficulty breathing * Wake up at night short of breath * Chest pain * Cough * Swelling of your hands, fee, or legs * More fatigued or tired with your normal activity * Palpitations - sudden fast heart beats WEIGHT * Weigh yourself every morning after using the bathroom. * Use the same scale. * Wear the same amount of clothing. * Write your weight down on your chart. * Call your doctor if you gain more than 2-3 pounds in 1-2 days. MEDICATIONS * Use this discharge instruction sheet for instructions. * Take your medications at the time your doctor ordered. * Do not skip a dose of your medicines. * If you miss a dose of medicine, take as soon as possible, but DO NOT DOUBLE A DOSE. * Read your medicine information when you get home. * Know all of the side effects of your medicine. * Call your doctor's office if you have any side effects. * Be sure all of your doctors know what medicine and herbs you take (including cold, flu, and herbal medicine). * Pain Medicine: If you do not get relief from your pain, please call your doctor for help. Take the following with you to your follow-up doctor appointments: * Weight Chart * Medication List * List of questions Do not drink excessive alcohol, beer or wine. Prescriptions: New multivitamin [Daily-Piotr] Tablet 1 tab PO QAM 30 Days Qty: 30 RF: 0 metoprolol succinate 50 mg Tablet Extended Release 24 Hr 50 mg PO BID 30 Days Qty: 60 RF: 0 thiamine HCl (vitamin B1) [Vitamin B-1] 100 mg Tablet 100 mg PO QAM 30 Days Qty: 30 RF: 0 folic acid 1 mg Tablet 1 mg PO QAM 30 Days Qty: 30 RF: 0 furosemide 20 mg Tablet 20 mg PO QAM 30 Days Qty: 30 RF: 0 lisinopril 2.5 mg Tablet 1.25 mg PO QAM 30 Days Qty: 15 RF: 0 Eliquis 5 mg Tablet 5 mg PO BID 30 Days Qty: 60 RF: 0 Continued simvastatin 20 mg tablet 20 mg PO HS RF: 0 Discontinued aspirin 325 mg Tablet 325 mg PO DAILY RF: 0 metoprolol tartrate 25 mg tablet 12.5 mg PO BID RF: 0 Stand-Alone Forms: [facility] Discharge Orders: Discharge Order (Routine); Ordered 06/03/19 Ordered By: Francisca Zavaleta Admission Data Admit Date/Time: 05/29/19 14:10 Attending Provider: Francisca Zavaleta Admit Provider: Raji Sullivan Primary Care Provider: Du Chopra Other Providers: Sukumar Alejo ; Vasquez Bowman Robin A. Service: Telemetry Other Interventions: Discharge Summary Assessment (RN) Last Done: 06/03/19 14:03 DC Date/Time DO NOT enter until pt leaves facility: 06/03/19 14:39
[2019-06-04] MEDS ORDERED: FUROSEMIDE 20 MG TAB PO SCH (09:00)
== END 2019-06-03 14:39 | disposition home or self-care (01) | DRG 286 ==
LOC: ED 12:16 → SUATTDRO 14:10 → 2S 14:10
DX: I44.7 Left bundle-branch block, unspecified; Z79.82 Long term (current) use of aspirin; I25.10 Atherosclerotic heart disease of native coronary artery without angina pectoris; F10.20 Alcohol dependence, uncomplicated; F17.210 Nicotine dependence, cigarettes, uncomplicated; E78.5 Hyperlipidemia, unspecified; I34.0 Nonrheumatic mitral (valve) insufficiency; I50.21 Acute systolic (congestive) heart failure; I48.0 Paroxysmal atrial fibrillation; I42.6 Alcoholic cardiomyopathy

== ENCOUNTER 2020-04-08 07:13 | Observation (INO) ==
--- NOTE | 2020-04-07 08:45 | Anesthesiology Consultation ---
Date of Service April 07, 2020 COVID 19 assessment: pt history/travel reviewed. low risk at this time. Will be reassessed day of surgery. No pending covid 19 test History Surgery Operation Date: 04/08/20 08:00 Proposed Procedures p ICD Biventricular Implant - Sadia Echavarria DO Allergies Allergy/AdvReac Type Severity Reaction Status Date / Time No Known Allergies Allergy Unverified 07/31/19 13:53 Medications Home Medications Medication Instructions Recorded Confirmed Last Taken simvastatin 20 mg PO HS 05/29/19 07/31/19 05/28/19 Eliquis 5 mg PO BID 07/31/19 07/31/19 Unknown folic acid 1 mg PO QAM 07/31/19 07/31/19 Unknown furosemide 20 mg PO QAM 07/31/19 07/31/19 Unknown lisinopril 1.25 mg PO QAM 07/31/19 07/31/19 Unknown metoprolol succinate 50 mg PO BID 07/31/19 07/31/19 Unknown multivitamin 1 tab PO QAM 07/31/19 07/31/19 Unknown thiamine HCl (vitamin B1) [Vitamin 100 mg PO QAM 07/31/19 07/31/19 Unknown B-1] Past Medical History Medical History Alcohol abuse (Chronic) quit 05/2019 per pt report Congestive heart failure Dyslipidemia (Chronic) Hypertension Left bundle branch block (Chronic) Migraines Osteoarthritis Paroxysmal atrial fibrillation (Chronic) dx approx 7 years ago per pt report - currently on Eliquis - follows w/ Dr. Maico Castellanos historian Psoriasis (Chronic) Past Family History Family History Father Throat cancer Mother Lung cancer Other No significant family history Past Surgical History Surgical History H/O inguinal hernia repair (Chronic) H/O varicose vein stripping (Chronic) BLLE History of cardiac cath (Chronic) 05/[address] [facility] - no stents - follows w/ Dr. Nina 2011-showed nonobstructive CAD History of colonoscopy History of left knee surgery Social History Smoking Status: Current every day smoker tobacco type: cigarettes Smoking cigarettes per day: 10 Hx Alcohol Use: No (USED TO BE A HEAVY DRINKER (10 + LIQUOR DRINKS PER DAY)) Alcohol type: beer and hard liquor alcohol intake frequency: 3 or more drinks per day Hx Substance Use: No substance use type: does not use
[2020-04-08] MEDS ORDERED: BACITRACIN INJ 50,000 UNIT VIAL ONE (07:19)
[2020-04-08] MEDS ORDERED: LIDOCAINE HCL 1% 20 ML VIAL ONE (07:19)
[2020-04-08] MEDS ORDERED: BUPIVACAINE 0.25% 30 ML VIAL ONE (07:19)
[2020-04-08] MEDS ORDERED: MIDAZOLAM HCL 5 MG/ML 1 ML VIAL ONE ×3 (07:39→10:24)
[2020-04-08] MEDS ORDERED: CEFAZOLIN 250 MG/ML 1 GM VIAL ONE (07:40)
[2020-04-08] MEDS ORDERED: fentaNYL citrate 100 MCG/2 ML VIAL ONE ×3 (07:40→10:02)
--- NOTE | 2020-04-08 08:11 | Pre Anesthesia Assessment ---
Date of Service April 08, 2020 Pre Sedation Assessment Vital Signs Temp Pulse Resp BP Pulse Ox 04/08/20 07:25 36.8 C 65 17 141/83 H 92 Cardiovascular + regular rhythm Respiratory normal respiratory effort, lungs clear to auscultation Pre-Sedation Airway Assessment Smoking Status: Current every day smoker Hx Sleep Apnea: No Short, Thick Neck: No Thyromental Distance: > or= 3.5 Finger Breadths Oral Cavity: + WNL Mallampati Class: II ASA: ASA3 NPO Status Date of Last Intake of Fluids: 04/08/20 Time of Last Intake of Fluids: 06:30 Date of Last Intake of Solid Food: 04/07/20 Time of Last Intake of Solid Foods: 17:30 Procedure Planning Contraindications for Sedation: none Current Medications Reviewed: Yes Notes The planned sedation has been discussed with the patient. Informed Consent was obtained. I have identified the patient, determined the appropriateness of sedation and have assessed the patient immediately prior to the procedure. All medicine(s) and interventions are by my order.
--- NOTE | 2020-04-08 08:32 | History & Physical Bridge Note ---
Date of Service April 08, 2020 History & Physical Bridge Note I have examined the patient, reviewed the History & Physical and in the interval since the performance of the History & Physical I have noted the following changes of clinical significance: no changes noted
--- NOTE | 2020-04-08 11:12 | Post Anesthesia Assessment ---
Date of Service April 08, 2020 Post Sedation Assessment Vital Signs Temp Pulse Resp BP Pulse Ox 04/08/20 07:25 36.8 C 65 17 141/83 H 92 Recovery Score Activity: Moves 4 extremities Respiration: Deep Breath/Cough Circulation: +/-20% PreAnes Value Consciousness: Fully Awake Oxygen Saturation: > 92% On Room Air Discharge Sedation Level of Care: Fast Track Phase II Post Sedation Plan On clinical assessment, the patient appears to have tolerated the sedation without complications. Patient is recovering as anticipated. Patient will continue to be monitored by nursing and may be discharged when sedation discharge criteria are met per below protocol. Upon Completions of procedure up to 15 minutes continue every 5 minute vital signs and the P.A.R. score; then discharge to a Phase I or Fast Track to Phase II per the following guidelines: * Discharge Patient to appropriate Phase II area if PAR is 8 or greater or return to pre- procedure baseline. The post - procedure orders will be as directed. * If PAR score is less than 8 or not return to pre-procedure baseline then patient will follow Phase I monitoring till PAR is reached for Phase II. The Phase I may be done in procedure room or may call to secure a Phase I area. * If naloxone or flumazenil are used for reversal, hold in Phase I for continued monitoring from when last reversal dose was given for a minimum of 60 minutes or longer pending the nurse and/or physician discretion of patient condition before discharge to Phase II. Please call the Sedation Physician to re-evaluate and complete post-note for discharge to Phase II area. Do NOT discharge from procedure sedation or Phase 1 until post- sedation evaluation note is complete by procedure /sedation MD Sedation Discharge Instructions to be given to the patient at discharge to home.
--- NOTE | 2020-04-08 11:13 | Operative Report ---
Post Operative Report Pre & Post Diagnosis Operation Date: 04/08/20 08:00 <No data on this case meets the specified criteria> I identified the patient and participated in the time-out.: Yes Procedure Operation Date: 04/08/20 08:00 Actual Procedures p ICD Insertion Single or Dual - DO agusto Rhodes Lead LV (No Priopr Implant) - DO agusto Rhodes Venogram, Unilateral - Sadia Echavarria DO Surgeon Sadia Echavarria, Hand Bootmaker none Estimated Blood Loss 20 Findings Consistent with Post-Op Diagnosis Specimens none Description of Procedure see official note I attest to the content of the Intraoperative Record and any orders documented therein. Any exceptions are noted below.
[2020-04-08] MEDS ORDERED: ACETAMINOPHEN 325 MG TAB PO PRN (11:14)
--- NOTE | 2020-04-08 11:25 | Discharge Summary ---
Date of Service April 09, 2020 Admission HPI Per Admitting Provider Pt admitted for elective BIV ICD due to NICM; he had complaints of SOB Admission Exam Per Admitting Provider aaox3, NAD NC/AT, EOMI Supple No JVD Nrl S1/S2, No murmur CTA b/l no w/r/r soft nt/nd no LE edema b/l skin intact no focal deficits Principal Diagnosis NICM s/p BiV ICD Discharge Exam aaox3, NAD NC/AT, EOMI Supple No JVD Nrl S1/S2, No murmur CTA b/l no w/r/r soft nt/nd no LE edema b/l skin intact no focal deficits left pectoral incision intact, no hematoma mild ecchymosis Discharge Data Allergies Allergy/AdvReac Type Severity Reaction Status Date / Time No Known Allergies Allergy Unverified 04/08/20 07:38 Procedures Performed Operation Date: 04/08/20 08:00 Actual Procedures p ICD Insertion Single or Dual - Sadia Echavarria DO s Lead LV (No Priopr Implant) - Sadia Echavarria DO s Venogram, Unilateral - Sadia Echavarria DO Ordered Studies ECG: -His paced CXR: No PTX; leads in position BiV ICD Interrogation: Normal function from implant 04/08/20 06:45 EP Lab Images for PACS ONCE Hospital Course (1) Nonischemic cardiomyopathy: (2) Paroxysmal atrial fibrillation: Total Time Total Time Spent Total Time Spent (In Minutes): 35 Total Time Includes: Examination of the Patient, Discharge Planning, Medication Reconciliation and Other Discharge Plan Discharge Items Reason For Visit: Nonischemmic Cardiomyopathy, Left BBB Discharge Diagnosis: NICM s/p BiV HIS bundle ICD Condition on Discharge: Good Activity: As commented below Activity Comment: do not lift the left elbow over the left shoulder for 1 month Lifting: No more than 10 pounds Lifting Comment: do not lift more than 10 pounds with the left arm for 2 weeks Bathing: Keep incision dry Bathing Comment: keep dressing on & dry until your wound check Sexual Activity: After two weeks Call non-emergency contact if: you have any medication questions Addtl Attending Provider Instructions: Device and wound check at [facility] on Tuesday04/15/2020; 1:30pm Pending Studies at Discharge: No Stand-Alone Forms: My [facility] Medications and DC Order Prescriptions: Continued multivitamin Tablet 1 tab PO QAM RF: 0 thiamine HCl (vitamin B1) [Vitamin B-1] 100 mg Tablet 100 mg PO QAM RF: 0 folic acid 1 mg Tablet 1 mg PO QAM RF: 0 furosemide 20 mg Tablet 20 mg PO QAM RF: 0 lisinopril 2.5 mg Tablet 1.25 mg PO QAM RF: 0 Eliquis 5 mg Tablet 5 mg PO BID RF: 0 metoprolol succinate 50 mg Capsule,Sprinkle,Er 24hr 50 mg PO BID RF: 0 atorvastatin 40 mg Tablet 40 mg PO DAILY RF: 0 Admission Data Admit Date/Time: 04/08/20 11:12 Attending Provider: Sadia Echavarria Admit Provider: Sadia Echavarria Primary Care Provider: Du Chopra
[2020-04-08] MEDS: OXYCODONE/ACETAMINOPHEN 5mg/325mg TAB PO PRN ×2 (14:15→20:18)
--- NOTE | 2020-04-08 15:03 | Electrocardiogram Report ---
Test Reason : Blood Pressure : / mmHG Vent. Rate : 065 BPM Atrial Rate : 065 BPM P-R Int : 136 ms QRS Dur : 142 ms QT Int : 470 ms P-R-T Axes : 025 -22 103 degrees QTc Int : 488 ms Atrial-sensed ventricular-paced rhythm Abnormal ECG When compared with ECG of 10-AUG-2019 07:33, Electronic ventricular pacemaker has replaced Sinus rhythm Confirmed by Garrett Delgado ([id number]) on 04/08/2020 3:03:27 PM Referred By: Sadia Echavarria Confirmed By:Garrett Delgado
[2020-04-08] MEDS: METOPROLOL SUCC 50MG EXT REL TAB PO SCH (20:05)
[2020-04-08] MEDS: ATORVASTATIN 40 MG TAB PO SCH (20:19)
[2020-04-09] MEDS: OXYCODONE/ACETAMINOPHEN 5mg/325mg TAB PO PRN (05:33)
--- NOTE | 2020-04-09 07:58 | XRay Report ---
TWO VIEW CHEST CLINICAL HISTORY: Pacemaker implantation.. FINDINGS: PA and lateral chest radiographs are compared to study dated 05/29/2019. A 3-lead cardiac AI CD has been placed. This partially obscures the left upper chest. Leads project over the right atrial appendage and both ventricles. The heart is enlarged. The pulmonary vasculature is noncongested. Chr onic interstitial thickening is similar to previous. No airspace consolidation or pleural effusion is identified. Scarring/atelectasis is noted at the lung bases. There is no pneumothorax. The skeletal structures are osteopenic. The bony thorax appears intact. IMPRESSION: 1. A 3-lead cardiac AICD has been placed as above. No pneumothorax is identified post procedure. 2. Cardiomegaly without radiographic evidence of congestive failure. 3. No airspace consolidation or pleural effusion is identified. ACT 112: Negative or not required by law. Electronically signed by: Ziggy Suggs M.D. 04/09/2020 7:57 AM
[2020-04-09] MEDS: ATORVASTATIN 40 MG TAB PO SCH (08:24)
[2020-04-09] MEDS: METOPROLOL SUCC 50MG EXT REL TAB PO SCH (08:25)
[2020-04-09] MEDS ORDERED: FUROSEMIDE 20 MG TAB PO SCH (09:00)
[2020-04-09] MEDS ORDERED: APIXABAN 5 MG TABLET PO SCH (09:00)
[2020-04-09] MEDS ORDERED: MULTIVITAMIN TAB PO SCH (09:00)
[2020-04-09] MEDS ORDERED: FOLIC ACID 1 MG TAB PO SCH (09:00)
[2020-04-09] MEDS ORDERED: THIAMINE HCL 100 MG TAB PO SCH (09:00)
--- NOTE | 2020-04-09 14:19 | Operative Report (OR) ---
DATE OF OPERATION: 04/08/2020 PREOPERATIVE DIAGNOSES: Nonischemic cardiomyopathy, left bundle branch block, chronic heart failure with reduced ejection fraction [place] [employer] class 2, and paroxysmal atrial fibrillation. POSTOPERATIVE DIAGNOSES: Nonischemic cardiomyopathy, left bundle branch block, chronic heart failure with reduced ejection fraction [place] [employer] class 2, and paroxysmal atrial fibrillation. PROCEDURE: Biventricular (His bundle) implantable cardiac defibrillator rate responsive under fluoroscopic guidance along with peripheral venogram, intracardiac mapping of the His bundle region. SURGEON: Sadia Echavarria DO. ASSISTANTS: None. ANESTHESIA: Monitored conscious sedation administered under my supervision by Lynda Mosley, start time 8:34, end time 11:06. Total of 11 mg of Versed, 275 mcg of fentanyl. INTRAVENOUS FLUIDS: 78 mL. ANTIBIOTICS: 2 grams of Ancef. CONTRAST: 50 mL. BLOOD LOSS: 20 mL. URINE OUTPUT: Not applicable. SPECIMENS: None. FINDINGS: See below. DRAINS: None. INDICATIONS: This is a 64-year-old gentleman with past medical history for nonischemic cardiomyopathy diagnosed in 05/2019. His ejection fraction at that time was 15%-20%. His ejection fraction remained low in 12/2019 at 20%, left bundle branch block, coronary artery disease with mild nonobstructive disease by cath in 05/2019, paroxysmal atrial fibrillation, on Eliquis and Toprol, status post cardioversion in 08/2019, CHADS2-VASc score of 3, chronic heart failure with reduced ejection fraction [place] [employer] class 2, hyperlipidemia, tobacco use, history of alcohol use and arthritis. The patient was recommended a biventricular device due to his nonischemic cardiomyopathy, heart failure, and left bundle. CONSENT: Consent was obtained prior to the patient going into the electrophysiology lab. The patient was informed of the risks, benefits and alternative procedure. Risks include but not limited to sudden cardiac , cardiac arrhythmias, cerebrovascular accident, myocardial infarction, injury to the blood vessels, chamber of the heart, lung, bleeding, and infection. The patient understood these risks and agreed to the procedure as planned. Informed consent was obtained. DESCRIPTION OF THE PROCEDURE: The patient was brought into electrophysiology lab in fasting state. He was connected to continuous monitoring engineer. Timeout was performed to ensure patient identity and procedure correctly. The patient was prepped and draped over the left infraclavicular space in normal surgical standard fashion. Monitored conscious sedation was given throughout the procedure for patient's comfort level. Ward precautions were maintained throughout the procedure. He received prophylactic antibiotics prior to incision. 20 mL of 1% lidocaine-bupivacaine mixture was given in the left deltopectoral groove. Incision was made in the left deltopectoral groove. Blunt dissection was performed down to identify the cephalic vein; however, it was too high, so I did not use it. I did a peripheral venogram using 10 mL of contrast diluted in 10 mL of saline followed by 20 mL flush to identify the axillary vein. Venous axillary access was obtained via a needle stick on 2 different occasions without any problems. On the more lateral stick, an 8-Cymraes sheath was inserted over the guidewire and the dilator was removed and a second guidewire was reinserted through the sheath to allow for retained venous access. The sheath was removed. Then a 9.5-Cymraes sheath was inserted over one of the guidewires in that more lateral stick, the guidewire and dilator removed. The right defibrillator lead was then advanced into right ventricle and positioned in the right ventricular apex under fluoroscopic guidance. There was adequate pacing and sensing thresholds and no diaphragmatic stimulation with high output pacing. The 9.5-Cymraes sheath was peeled away and lead was fixated to pectoralis muscle using 0 silk suture. An 8-Cymraes sheath was inserted over the retained guidewire in the lateral stick without any difficulties. The guidewire and dilator removed and the right atrial lead was advanced into right atrium and positioned in the right atrial appendage under fluoroscopic guidance. There was adequate pacing and sensing thresholds and no diaphragmatic stimulation with high output pacing. The 8-Cymraes sheath was peeled away and lead was fixated to pectoralis muscle using 0 silk suture. A 9.5-Cymraes sheath was inserted over the more medial access stick and a MPX over a Glidewire was advanced into the right atrium. Then, the coronary sinus was cannulated using the Teikon Decapolar coronary sinus diagnostic catheter. Then, the MPX was advanced over that. Then, I did a venogram of the coronary sinus and it showed 2 small tortuous posterolateral branches. I did try to wire one with a Whisper wire, but I was not able to, so I opted to boycott the traditional left coronary sinus lead, entered a His bundle lead. So, the MPX was removed and the His bundle preformed J sheath was advanced into the right atrium over a guidewire. The guidewire and dilator were removed. Then, we did intracardiac electrogram mapping of the His bundle region. The AH was found to be 75 milliseconds and the HV was found to be 69 milliseconds. The His lead was screwed into this area and there was adequate His bundle capture. Of note, there was not really any change in the QRS and I guess because that was above the block in the QRS morphology and towards the end of loss of capture, I think we were capturing some atrial retrograde instead of the His bundle, but it was right at the end of capture. The sheath was then slid under fluoroscopic guidance followed then by the 9.5-Cymraes sheath was slid and the lead was fixated to pectoralis muscle using 0 silk suture. A defibrillator pocket was created using blunt dissection over the pectoralis muscle within the pectoralis fascia. Pocket was flushed with copious amounts of bacitracin saline wash and inspected for hemostasis. The leads were attached to the generator making sure that the pins were in appropriate position, passed set screws and set screws were all tightened. The defibrillator was then placed in the pocket, making sure that the leads were lying flat beneath the device. The incision was then closed in a 3-layer fashion using 2-0 Vicryl interrupted suture followed by 3-0 Vicryl interrupted suture, followed by a 4-0 Monocryl running stitch and Dermabond followed by micropore and Telfa dressing. EQUIPMENT: 1. Pulse generator is a [employer] FIELD [employer]PER[employer] MANAGER-D Sure[employer] [id number], serial number [id number]. 2. Right atrial lead is Medtronic 5076-52 cm, serial number [id number]. 3. Right ventricular lead is Medtronic 6935-62 cm, serial number [id number]. 4. His bundle lead is Medtronic 3830-69 cm, serial number [id number]. INTRAOPERATIVE TESTIN. Right atrial lead: P waves 4.6 millivolts, impedance 764 ohms, threshold 1.2 volts at 0.5 milliseconds. 2. Right ventricular lead: R waves 8.7 millivolts, impedance 494 ohms, threshold 0.4 volts at 0.4 milliseconds. 3. His bundle lead: His waves were 0.9 millivolts, impedance 564 ohms, threshold 1.3 volts at 1 millisecond. FINAL MEASUREMENTS THROUGH THE DEVICE: 1. Right atrial lead: P waves 3 millivolts, impedance 456 ohms, threshold 1 volt at 0.4 milliseconds. 2. Right ventricular lead: R-wave 7.5 millivolts, impedance 513 ohms, threshold 0.5 volts at 0.4 milliseconds. 3. RV coil 75 ohms. 4. His bundle lead impedance 532 ohms, loss of His capture 0.75 volts at 1 millisecond. FINAL PARAMETERS: DDDR 60/130, right atrial and right ventricular amplitude 3.5 volts, pulse width 0.4 milliseconds, sensitivity 0.3 millivolts. The His bundle lead is amplitude of 4 volts and pulse width 1 millisecond. The VT monitor zone 133 beats per minute for 32 detection intervals, VT zone at 167 beats per minute for 16 detection intervals and VF zone at 200 beats per minute for 30/40 detection intervals. IMPRESSION: Successful implantation of a biventricular rate responsive (His bundle) implantable cardiac defibrillator under fluoroscopic guidance along with peripheral venogram and venogram of the coronary sinus, as well as intracardiac mapping of the His bundle. PLAN: Monitor patient overnight, 12-lead ECG, chest x-ray. He is not allowed to lift left elbow or left shoulder for 1 month. He cannot lift more than 10 pounds with the left arm for 2 weeks. He is to keep the dressing on and dry for 1 week's time where his wound check is scheduled for next Tuesday on 04/15 at [facility] [place] and we can restart his Eliquis tomorrow. I attest to the content of the Intraoperative Record and any orders documented therein. Any exception s are noted below.
--- NOTE | 2020-04-10 12:31 | Electrocardiogram Report ---
Test Reason : Blood Pressure : / mmHG Vent. Rate : 077 BPM Atrial Rate : 077 BPM P-R Int : 196 ms QRS Dur : 156 ms QT Int : 430 ms P-R-T Axes : 270 -16 124 degrees QTc Int : 486 ms AV dual-paced rhythm Abnormal ECG When compared with ECG of 08-APR-2020 12:59, Vent. rate has increased BY 12 BPM Confirmed by Garrett Delgado ([id number]) on 04/10/2020 12:31:21 PM Referred By: Sadia Echavarria Confirmed By:Garrett Delgado
== END 2020-04-09 09:30 | disposition home or self-care (01) ==
LOC: 2S 07:13 → EP 07:13
PROC: EPB.ICD (2020-04-08 08:00)